=== PATIENT | male | born 1960 | race Caucasian/White ===

== ENCOUNTER → 2018-05-09 | Outpatient (CLI) | payer MEDICARE, MEDICAID | END | disposition home or self-care (01) | LOC: PMGWOUND 10:00 | DX: L81.7 Pigmented purpuric dermatosis (principal); J44.9 Chronic obstructive pulmonary disease, unspecified; E11.9 Type 2 diabetes mellitus without complications; G89.4 Chronic pain syndrome; I11.0 Hypertensive heart disease with heart failure; I50.9 Heart failure, unspecified; M19.90 Unspecified osteoarthritis, unspecified site; E66.9 Obesity, unspecified; G47.30 Sleep apnea, unspecified; E78.00 Pure hypercholesterolemia, unspecified; J45.909 Unspecified asthma, uncomplicated; Z89.612 Acquired absence of left leg above knee; Z68.38 Body mass index [BMI] 38.0-38.9, adult; Z79.4 Long term (current) use of insulin | CPT/HCPCS: 99212 ==

== ENCOUNTER → 2018-10-18 | Day surgery (SDC) | payer MEDICARE, MEDICAID ==
[~2018-10-18] MED LIST: ARIP5TAB13 PO; CETI10TA22 PO; CLON0.5T PO; DICY20TA3 PO; DILT240C2 PO; DULO60CA6 PO; FURO80TA3 PO; GABA800T PO; INSU100I17 SQ; INSU100I27 SQ; IV RINGERS,LACTATED 1000ML 1,000 ML IV SCH; LEVO75TA PO; LIDOCAINE 1% PF 2 ML VIAL. ID PRN; LIDOCAINE 1% PF 2 ML VIAL. ONE; LISI-130 PO; METF10007 PO; METO50TA6 PO; MIDAZOLAM HCL/PF 2 MG/2 ML VIAL. IV PRN; OMEP20TA63 PO; PRAV40TA PO; PROPOFOL 60 ML IV ONE; SERT25TA PO; SPIR25TA PO; TRAZ-85 PO; fentaNYL PF VIAL 100 MCG/2 ML VIAL IV PRN
[2018-10-18 11:30] VITALS: BP 147/72
--- NOTE | 2018-10-18 11:59 | HP ---
ADMIT DATE: 10/18/2018 REASON FOR VISIT: Preoperative clearance for gastric bypass and history of Crohn's. HISTORY OF PRESENT ILLNESS: A 58-year-old male whose past medical history is significant for obesity, peripheral vascular disease, status post amputation as well as insulin, hypothyroidism, diabetes, hyperlipidemia and gastroesophageal reflux disease, is seen for gastric bypass surgery. Preoperatively, upper endoscopy to assess for ulcer or H. pylori is recommended. This will be performed. In addition, he has a remote history of Crohn's disease which has been controlled on intermittent p.r.n. Lomotil and prednisone. No family history of colon cancer is elicited. There is a family history of diabetes and hypertension. PAST MEDICAL HISTORY: Anxiety, arthritis, CHF, Crohn's, depression, diabetes, hyperlipidemia, hypothyroidism and renal disease. ALLERGIES: INCLUDE NSAIDS, SULFA, CYCLOBENZAPRINE, FENTANYL, MORPHINE AND TAMSULOSIN. MEDICATIONS: Include Abilify, Zyrtec, Klonopin, dicyclomine, Cardizem, Cymbalta, Lasix, Neurontin, insulin, lisinopril, metformin, metoprolol, omeprazole, pravastatin, sertraline, spironolactone and trazodone. FAMILY HISTORY: Per records. SOCIAL HISTORY: Per records. REVIEW OF SYSTEMS: Per records. PAST SURGICAL HISTORY: Back surgery, joints replacement and tonsillectomy. PHYSICAL EXAMINATION: GENERAL: Reveals a well-nourished, well-developed male. VITAL SIGNS: Temperature is 97.4, pulse 92 and respirations 20. HEENT EXAMINATION: Reveals normocephalic and atraumatic head. Pupils and extraocular muscles are not tested. Sclerae anicteric. NECK: Supple. LUNGS: Clear. CARDIOVASCULAR EXAMINATION: Reveals an S1, S2, without S3, S4 or appreciable murmur. ABDOMEN: Examination reveals a soft abdomen. Normoactive bowel sounds, without appreciable hepatosplenomegaly. EXTREMITIES: Examination reveals no cyanosis, clubbing or edema. The patient does have amputation on one side. IMPRESSION AND PLAN: 1. Crohn's disease. Surveillance exam is recommended at this time with biopsies. Risks and benefits have been discussed. The patient is willing to proceed. 2. Epigastric pain with dyspepsia and preoperative gastric bypass. Clearance for H. pylori, biopsies will be obtained. MORALES BRAUN MD DR: Pema JOB#: [id number] / [id number]
--- NOTE | 2018-10-21 15:07 | PATHOLOGY ---
[facility] Accession Number: [id number] . 01 Material submitted: . PART A: ANTRUM BIOPSY PART B: RIGHT COLON BIOPSY PART C: TRANSVERSE COLON BIOPSY PART D: LEFT COLON BIOPSY . 01 Clinical history: . GERD, Crohn's, Dysphagia . 02 Diagnosis: A. Stomach, antrum, biopsy: - Mild chronic inflammation, nonspecific. - No evidence of Helicobacter pylori on immunoperoxidase stain. . B, C, D: Colon, right, transverse, and left, biopsies: - Colonic mucosa with no significant histopathologic diagnosis. (SKM:[place]se; 10/21/2018) QMS/10/21/2018 . 02 Electronically signed: . Jac Torres MD, Pathologist NPI- [id number] . 01 Gross description: . A. Received in formalin labeled "Blade Phillips, antrum BX, rule out H. pylori," are 6 segments of rodriguez soft tissue measuring 1.0 x 0.9 x 0.2 cm in aggregate dimensions and ranging from 0.3 to 0.5 cm in maximum dimension. The specimen is submitted entirely in cassette A1. . B. Received in formalin labeled "Blade Phillips, right colon BX," are multiple segments of rodriguez soft tissue measuring 1.6 x 0.5 x 0.1 cm in aggregate dimensions. The specimen is filtered and entirely submitted in cassette B1. . C. Received in formalin labeled "Blade Phillips, transverse colon BX," are multiple segments of rodriguez soft tissue measuring 1.5 x 0.5 x 0.1 cm in aggregate dimensions. The specimen is filtered and entirely submitted in cassette C1. . D. Received in formalin labeled "Blade Phillips, left colon BX," are multiple segments of rodriguez soft tissue measuring 1.7 x 0.5 x 0.1 cm in aggregate dimensions. The specimen is filtered and entirely submitted in cassette D1. (TSD; 10/18/2018) TOB/TOB . 02 Pathologist provided ICD-10: K29.50, K21.9, K50.90, R13.10 . 02 CPT . 769803, 428809, 966951, 249374, [id number] Specimen Comment: A courtesy copy of this report has been sent to Specimen Comment: [phone], , . Specimen Comment: Report sent to Specimen Comment: A duplicate report has been generated due to demographic updates. Performed at: 01 [facility] [address], [place] [id number] MD Everett Sood MD Phone: [phone] Performed at: 02 [facility] [address] [place], [place] [id number] MD Loki Verduzco MD Phone: [phone]
== END | disposition home or self-care (01) ==
LOC: SURG 08:53
PROVIDERS: ATTEND Internal Medicine Gastroenterology
DX: Z09 Encounter for follow-up examination after completed treatment for conditions other than malignant neoplasm (principal); Z87.19 Personal history of other diseases of the digestive system; K64.0 First degree hemorrhoids; K29.50 Unspecified chronic gastritis without bleeding; K50.10 Crohn's disease of large intestine without complications; F41.9 Anxiety disorder, unspecified; F32.9 Major depressive disorder, single episode, unspecified; E11.9 Type 2 diabetes mellitus without complications; E78.5 Hyperlipidemia, unspecified; E03.9 Hypothyroidism, unspecified; K21.9 Gastro-esophageal reflux disease without esophagitis; M19.90 Unspecified osteoarthritis, unspecified site; I11.0 Hypertensive heart disease with heart failure; I50.9 Heart failure, unspecified; E66.9 Obesity, unspecified; Z98.84 Bariatric surgery status; Z83.3 Family history of diabetes mellitus; Z82.49 Family history of ischemic heart disease and other diseases of the circulatory system; Z88.2 Allergy status to sulfonamides; Z88.5 Allergy status to narcotic agent; Z88.6 Allergy status to analgesic agent; Z88.8 Allergy status to other drugs, medicaments and biological substances; Z79.84 Long term (current) use of oral hypoglycemic drugs; Z79.899 Other long term (current) drug therapy; Z98.890 Other specified postprocedural states
CPT/HCPCS: 43239; 45380; 88305; 88342; J2704; 45385

== ENCOUNTER 2020-11-01 08:12 | Outpatient (CLI) | payer MEDICAID, MEDICARE ==
[2020-11-01] VITALS (18 sets, daily range): BP systolic 104–151; BP diastolic 46–73
[~2020-11-01] VITALS: Ht 175.3 cm; Wt 102.1 kg
[~2020-11-01 08:12] MED LIST changes: -CETI10TA22 PO; +CETI10TA74 PO; -IV RINGERS,LACTATED 1000ML 1,000 ML IV SCH; -LEVO75TA PO; +LEVO75TA90 PO; -LIDOCAINE 1% PF 2 ML VIAL. ID PRN; -LIDOCAINE 1% PF 2 ML VIAL. ONE; -MIDAZOLAM HCL/PF 2 MG/2 ML VIAL. IV PRN; -PROPOFOL 60 ML IV ONE; +TRAZ-118 PO; -TRAZ-85 PO; -fentaNYL PF VIAL 100 MCG/2 ML VIAL IV PRN
[2020-11-01] MEDS ORDERED: FLUT9.9S NS (08:48)
[2020-11-01] MEDS ORDERED: NORT25CA PO (08:48)
[2020-11-01] MEDS ORDERED: LOPE1LIQ7 PO (08:48)
[2020-11-01 08:57] LABS: BASO % 1 % (0-3); EOS # 0.2 x10^3/uL (0.0-0.7); EOS % 3 % (0-3); HEMATOCRIT 27.8 % (39.0-53.0); HEMOGLOBIN 9.8 g/dL (13.0-17.5); LYMPH # 1.5 x10^3/uL (1.0-4.8); LYMPH % 21 % (24-48); MEAN CORPUSCULAR HEMOGLOBIN 29 pg (25-35); MEAN CORPUSCULAR HGB CONC 35 g/dL (31-37); MEAN CORPUSCULAR VOLUME 82 fL (79-100); MONO # 0.5 x10^3/uL (0.0-1.1); MONO % 7 % (0-9); NEUT # 4.9 x10^3/uL (1.8-7.7); NEUT % 68 % (31-73); PLATELET COUNT 194 x10^3/uL (140-400); RED BLOOD COUNT 3.38 x10^6/uL (4.30-5.70); RED CELL DISTRIBUTION WIDTH 15.2 % (11.5-14.5); WHITE BLOOD COUNT 7.2 x10^3/uL (4.0-11.0)
[2020-11-01] MEDS ORDERED: LIDOCAINE WITH 8.4% SOD BICARB 3 ML DISP.SYRIN. ONE (08:57)
[2020-11-01 09:05] LABS: CALCIUM 8.4 mg/dL (8.5-10.1); CREATININE 1.9 mg/dL (0.7-1.3); GFR 36.2; POTASSIUM 3.5 mmol/L (3.5-5.1)
[2020-11-01 09:13] LABS: PROTHROMBIN TIME PATIENT 13.3 SEC (11.7-14.0)
[2020-11-01] MEDS ORDERED: fentaNYL PF VIAL 100 MCG/2 ML VIAL ONE (09:31)
[2020-11-01] MEDS ORDERED: FLUMAZENIL 0.5 MG/5 ML VIAL. IV ONE (09:31)
[2020-11-01] MEDS ORDERED: NALOXONE 0.4 MG/ML VIAL. ONE (09:31)
[2020-11-01] MEDS ORDERED: MIDAZOLAM HCL/PF 2 MG/2 ML VIAL. ONE (09:31)
[2020-11-01] MEDS ORDERED: MIDAZOLAM HCL/PF 2 MG/2 ML VIAL. IV ONE (09:45)
[2020-11-01] MEDS ORDERED: fentaNYL PF VIAL 100 MCG/2 ML VIAL IV ONE (09:45)
[2020-11-01] MEDS ORDERED: GELATIN SPONGE SIZE 12-7MM SPONGE. TP ONE (09:45)
[2020-11-01] MEDS ORDERED: GELATIN SPONGE SIZE 12-7MM SPONGE. ONE (09:45)
[2020-11-01] MEDS ORDERED: LIDOCAINE WITH 8.4% SOD BICARB 3 ML DISP.SYRIN. IJ ONE (09:45)
--- NOTE | 2020-11-01 10:02 | PDOC ---
MODERATE SEDATION ASSESSMENT RISKS/ALTERNATIVES Risks/Alternatives Risks and alternatives of this type of sedation and procedure discussed with: RISK/ALTERNATIVES: Patient H & P ON CHART H & P H & P on chart and reviewed for co-morbid conditions and appropriate labs. H&P ON CHART: Yes STATUS PREG STATUS ASSESSED: Yes MEDS/ALLERGIES REVIEWED Meds/Allergies Reviewed Medications and Allergies including time and route of recently administered narcotics and sedatives. MEDS/ALLERGIES REVIEWED: Yes ASA RATING ASA RATING: II AIRWAY ASSESSMENT Airway Assessment Airway patency, oral function limitations, presence of caps, crowns, dentures, partials, and ability to extend neck assessed. AIRWAY ASSESSMENT: Yes MALLAMPATI SCORE MALLAMPATI SCORE: II PRE-SEDATION ASSESSMENT PRE-SEDATION ASSESSMENT: Yes NISHI CASSIDY MD Nov 01, 2020 10:02
--- NOTE | 2020-11-01 10:04 | PDOC ---
Exam Stem Sizer Stem Sizer [place] Track Inspecting Supervisor Track Inspecting Supervisor Moses Pre-Procedure Diagnosis Pre-Procedure Diagnosis Nephrotic Syndrome Post-Procedure Diagnosis Post-Procedure Diagnosis Same Procedure Performed Procedure Performed Left renal biopsy Type of Anesthesia Type of Anesthesia Mod Sed Estimated Blood Loss EBL: 3 Specimens Specimans Renal core biopsy samples Drain/Tubes Drains/Tubes None Condition of Patient Condition of Patient Stable Disposition Disposition Return to [facility] with expected DC today NISHI CASSIDY MD Nov 01, 2020 10:04
[2020-11-01] MEDS ORDERED: VALA10005 PO (10:16)
[2020-11-01] MEDS ORDERED: ERGO500027 PO (10:16)
[2020-11-01] MEDS ORDERED: METH-38 PO (10:16)
[2020-11-01] MEDS ORDERED: LUTE1CAP5 PO (10:16)
[2020-11-01] MEDS ORDERED: BACL10TA PO (10:16)
[2020-11-01] MEDS ORDERED: CLOB15CR27 TP (10:16)
[2020-11-01] MEDS ORDERED: ONDA4TAB7 PO (10:16)
[2020-11-01] MEDS ORDERED: POTA10TA12 PO (10:16)
[2020-11-01] MEDS ORDERED: OXYC1TAB20 PO (10:16)
[2020-11-01] MEDS ORDERED: VITA1TAB3 PO (10:16)
[2020-11-01] MEDS ORDERED: COLE1TAB2 PO (10:16)
[2020-11-01] MEDS ORDERED: PRIM50TA24 PO (10:16)
[2020-11-01] MEDS ORDERED: AMLO-186 PO (10:16)
[2020-11-01] MEDS ORDERED: TERA10CA3 PO (10:16)
[2020-11-01] MEDS ORDERED: MULT1CAP33 PO (10:16)
[2020-11-01] MEDS ORDERED: CRESTOR40 MG PO (10:16)
[2020-11-01] MEDS ORDERED: BREO ELLIPTA 21 EACH IH (10:16)
[2020-11-01] MEDS ORDERED: MECL-75 PO (10:16)
[2020-11-01] MEDS ORDERED: DIPH1TAB PO (10:16)
--- NOTE | 2020-11-01 13:16 | RAD ---
11/01/2020 11:10 AM Procedure: Ultrasound-guided biopsy, left kidney Clinical Indication: NEPHROTIC SYNDROME Discussion: The procedure was explained in its entirety to the patient or the patients designated livestock sales representative by a member of the treatment team, including a discussion of the risks, benefits and commonly accepted alternatives to the procedure, as well as the expected consequences of no therapy whatsoever. Discussion of the risks included, but was not limited to, those that are most frequent and those that are rare but possibly severe or life-threatening, as well as the possibility of unforeseen complications. All elements of maximal sterile barrier technique including the use of a cap, mask, sterile gown, sterile gloves, large sterile sheet, appropriate hand hygiene, and 2% chlorhexidine for cutaneous antisepsis (or acceptable alternative antiseptic per current guidelines) were followed for this procedure. The procedures performed under conscious sedation including continuous cardiopulmonary monitoring via dedicated sedation nurse. [id number] sedation time: 25 minutes The patient was brought to the CT catheter in place in the prone position. A timeout procedure was performed. The left flank was prepped and draped using sterile barrier technique. Ultrasound evaluation demonstrated inadequate visualization of the left kidney. Some renal cortical thinning noted. 1% lidocaine was administered for local anesthesia. Under direct ultrasound guidance a 17-gauge needle was advanced into the posterior inferior left kidney. Core biopsy samples were obtained and divided amongst formalin and Curtis's solution. Gelfoam embolization of the biopsy tract was performed as the guiding needle was removed. Manual pressure was held for several minutes. Repeat ultrasound demonstrates no perinephric hemorrhage or other focal abnormality. Postbiopsy changes noted. Impression: Ultrasound-guided biopsy, left kidney
--- NOTE | 2020-11-01 13:25 | NUR ---
Patient d/c, taken to vehicle via wheelchair. All belongings w/ patient at time of transfer. Patient's son present. All d/c instructions discussed, patient and son verbalized understanding. PIV removed. VS stable. See assessments.
== END 2020-11-01 13:25 | disposition home or self-care (01) ==
LOC: INTRAD 08:12
PROVIDERS: ATTEND Nurse Practitioner Adult Health
DX: N04.9 Nephrotic syndrome with unspecified morphologic changes (principal); I13.0 Hypertensive heart and chronic kidney disease with heart failure and stage 1 through stage 4 chronic kidney disease, or unspecified chronic kidney disease; E11.22 Type 2 diabetes mellitus with diabetic chronic kidney disease; N18.9 Chronic kidney disease, unspecified; I50.9 Heart failure, unspecified; G47.30 Sleep apnea, unspecified; E78.5 Hyperlipidemia, unspecified; F41.9 Anxiety disorder, unspecified; F32.9 Major depressive disorder, single episode, unspecified; J44.9 Chronic obstructive pulmonary disease, unspecified; E03.9 Hypothyroidism, unspecified; E11.42 Type 2 diabetes mellitus with diabetic polyneuropathy; K29.50 Unspecified chronic gastritis without bleeding; M19.90 Unspecified osteoarthritis, unspecified site; G62.9 Polyneuropathy, unspecified; E66.9 Obesity, unspecified; K21.9 Gastro-esophageal reflux disease without esophagitis; Z88.2 Allergy status to sulfonamides; Z88.8 Allergy status to other drugs, medicaments and biological substances; Z88.5 Allergy status to narcotic agent; Z88.6 Allergy status to analgesic agent; Z79.4 Long term (current) use of insulin; Z79.899 Other long term (current) drug therapy; Z83.3 Family history of diabetes mellitus; Z98.84 Bariatric surgery status; Z87.19 Personal history of other diseases of the digestive system; Z68.33 Body mass index [BMI] 33.0-33.9, adult; Z89.612 Acquired absence of left leg above knee; Z82.49 Family history of ischemic heart disease and other diseases of the circulatory system
CPT/HCPCS: 36415; 50200; 76942; 80048; 85025; 85610; 99152; 99153; J2250; J3010; J3490

== ENCOUNTER 2022-03-07 14:44 | Inpatient (IN) | payer MEDICARE ==
[~2022-03-07] VITALS: Ht 175.3 cm; Wt 109.2 kg
[~2022-03-07 14:44] MED LIST changes: +AMLO-186 PO; +BACL10TA PO; +BREO ELLIPTA 21 EACH IH; +CLOB15CR27 TP; +COLE1TAB2 PO; +CRESTOR40 MG PO; +DICY20TA PO; -DICY20TA3 PO; +DIPH1TAB PO; -DULO60CA6 PO; +DULO60CA7 PO; +ERGO500089 PO; +FLUT9.9S NS; +LOPE1LIQ7 PO; +LUTE1CAP5 PO; +MECL-75 PO; +METH-38 PO; +MULT1CAP33 PO; +NORT25CA PO; +ONDA4TAB7 PO; +OXYC1TAB20 PO; +POTA10TA12 PO; +PRIM50TA24 PO; +TERA10CA3 PO; +VALA10005 PO; +VITA1TAB3 PO
--- NOTE | 2022-03-07 15:18 | EKG ---
[facility] [address] [place] [address] Test Date: 2022-03-07 Test Time: 14:55:34 Pat Name: GALILEA CHAU Department: Room: Gender: M Surgical Sales Representative: : 1960 Requested By: GALILEA EASLEY Order Number: [id number] Reading MD: Mario Bernal Measurements Intervals [place] Rate: 72 P: 45 [place]: 172 QRS: 14 QRSD: 82 T: 55 QT: 410 QTc: 451 Interpretive Statements SINUS RHYTHM Electronically Signed On 03-08-2022 17:09:32 CDT by Mario Bernal
--- NOTE | 2022-03-07 15:20 | PHYS DOC ---
Past Medical History Past Medical History: Anemia, Diabetes-Type II, High Cholesterol, Hypertension, Renal Failure Additional Past Medical Histor: CKD,ESRD Past Medical History Limited secondary to altered mental status Past Surgical History: Other Additional Past Surgical Histo: GROSHONG R CHEST,FISTULA L UPPER ARM,L AKA,BILAT SHOULDER Past Surgical History Limited secondary to altered mental status Smoking Status: Never Smoker Alcohol Use: None Drug Use: None Social History Limited secondary to altered mental status General Adult EDM: Chief Complaint: ALTERED MENTAL STATUS HPI: HPI: Patient is a 61-year-old male with CC DM, HTN, hyperlipidemia, ESRD on HD T//Sun presents with CC altered mental status. Patient reports having no memory of receiving dialysis care today. Patient reports achy headache and left lower chest/ upper quadrant abdominal pain. Patient reports headache and abdominal pain began on 03/03/2022 following a fall in his bathroom that resulted in head trauma. Patient reports pain associated with headache and abdominal pain has been constant since the event. Patient reports he has been falling more often in the past year. Patient also reports currently working with neurologist regarding tremors/jerks. Patient denies any fever, nausea, vomiting, dizziness, or hematochezia. Patient reports he make minimal urine. Report history of "chronic UTI" for which patient is on doxycycline. Patient reports he is unable to remember how he got to dialysis center. Reports he is prescribed oxycodone for chronic back pain. Denies taking any extra pain medications. Patient has an extensive past surgical history that includes left leg [id number] amputation, spinal cord cancer resection, epidural hematoma, cervical fusion, and bilateral shoulder repair. History of present illness limited secondary to altered mental status. Review of Systems: Review of Systems: Constitutional: Denies fever Eyes: Denies redness or eye pain HENT: Denies epistaxis Respiratory: Reports cough; denies shortness of breath Cardiovascular: Denies palpitations; reports left lower lateral chest wall pain GI: Denies abdominal pain, nausea, or vomiting. Reports left-sided upper abdominal pain. Integument: Denies laceration Neurologic: Reports headache and altered mental status Review of systems limited secondary to altered mental status. Heart Score: C/O Chest Pain: N/A Allergies: Allergies: Allergies Coded Allergies Type Severity Reaction Last Updated Verified NSAIDS (Non-Steroidal Anti-Inflamma Allergy Intermediate 10/18/18 Yes cyclobenzaprine Allergy Intermediate 10/18/18 Yes fentanyl Allergy Intermediate 10/18/18 Yes morphine Allergy Intermediate headache 10/18/18 Yes tamsulosin Allergy Intermediate 10/18/18 Yes Sulfa (Sulfonamide Antibiotics) Adverse Reaction Intermediate PALIPTATIONS 10/18/18 Yes Physical Exam: PE: Constitutional: Well developed, obese, no acute distress, somnolent HENT: Normocephalic, atraumatic Eyes: PERRL, EOMI, conjunctiva normal, no discharge, no nystagmus noted Neck: Normal range of motion, no midline tenderness, supple Lungs & Thorax: No respiratory distress, equal chest rise and fall, left lateral lower chest wall tenderness on palpation, auscultation diminished at base of left Cardiovascular: Regular rate and rhythm, cap refill less than 2 seconds Abdomen: Soft, mild tenderness deep palpation LUQ. Skin: Warm, dry, no erythema, no rash, no laceration Back: No tenderness, no CVA tenderness Extremities: No tenderness, ROM intact, no edema, 5/5 BUE + RLE strength, +2 capillary refill BUE, negative Gardiner, left lower extremity AKA noted Neurologic: Alert and oriented X 3, normal motor function, normal sensory function, no focal deficits noted. Somnolence but arousable to voice and answering appropriate questions. Reports cannot recall being at dialysis center. Psychologic: Affect normal, judgment abnormal Current Patient Data: Vital Signs: Vital Signs Date Time Temp Pulse Resp B/P (MAP) Pulse Ox O2 Delivery O2 Flow Rate FiO2 03/07/22 14:44 97.7 72 20 136/60 (85) 96 Room Air 97.7 EKG: EKG: @1455 NSR at 72bpm, NO ST elevation, QRS 82ms, QT/QTc 410/451ms Radiology/Procedures: Radiology/Procedures: PROCEDURE: CT HEAD AND CERVICAL SPINE WO EXAM: CT HEAD WITHOUT IV CONTRAST CLINICAL HISTORY: Reason: altered mental status, pain, hx of fall / Spl. Instructions: / History: COMPARISON: 06/02/2018 TECHNIQUE: Routine CT of the head without contrast. Soft tissues and bone windows were reviewed. PQRS compliance statement - One or more of the following individualized dose reduction techniques were utilized for this study: 1. Automated exposure control 2. Adjustment of the mA and/or kV according to patient size 3. Use of iterative reconstruction technique FINDINGS: There is no evidence of hemorrhage, mass or extra-axial fluid collection. Schaeffer-white differentiation is maintained with no evidence of edema. There is no mass effect or shift of the intracranial structures. The ventricles, basilar cisterns and cortical sulci are normal in size and configuration for the patients stated age. The cerebellum and brainstem are unremarkable. Lucent lesion within the right frontal region measures 2.5 cm, grossly stable to 06/02/2018. Calvarium demonstrates no evidence of fracture or other focal lesion. There is normal aeration of the visualized paranasal sinuses and mastoid air cells. The visualized portions of the orbits are normal. Atherosclerotic calcifications of the intracranial internal carotid and vertebral arteries is seen. IMPRESSION: No evidence for acute intracranial process. EXAM: CT CERVICAL SPINE WITHOUT IV CONTRAST CLINICAL HISTORY: Reason: altered mental status, pain, hx of fall / Spl. Instructions: / History: COMPARISON: None available. TECHNIQUE: Helical CT of the cervical spine was performed. Axial, coronal and sagittal reformatted images were also performed. PQRS compliance statement - One or more of the following individualized dose reduction techniques were utilized for this study: 1. Automated exposure control 2. Adjustment of the mA and/or kV according to patient size 3. Use of iterative reconstruction technique FINDINGS: Vertebral body heights are preserved. No acute fracture. Postoperative changes of C4-C6 anterior cervical discectomy and fusion. No spondylolisthesis. Straightening of the normal cervical lordosis. Mild C2-3, C3-4 and C6-7 disc height loss. Moderate C7-T1 disc height loss. Small posterior disc osteophyte complexes C6-7 and C7-T1 resulting in mild to moderate central canal stenosis. There is a background of congenital canal narrowing. IMPRESSION: 1. Postoperative changes of C4-C6 anterior cervical discectomy and fusion without evidence for acute fracture or hardware complication. 2. Multilevel degenerative changes as above. Electronically signed by: Herrera Blandon MD (03/07/2022 4:21 PM) [facility] PROCEDURE: CT CHEST ABDOMEN PELVIS WO ADDENDUM ADDENDUM #1 Addendum: Impression: 8. An indeterminate 1.8 cm right adrenal nodule is seen as described above. This can be correlated with prior imaging if available, otherwise can be further assessed by MRI if clinically indicated. Electronically signed by: Herrera Blandon MD (03/07/2022 4:47 PM) [facility] ORIGINAL REPORT EXAM: CT Chest, Abdomen and Pelvis without IV contrast CLINICAL HISTORY: Reason: left chest/LUQ abdominal pain s/p fall / Spl. Instructions: / History: COMPARISON: None. TECHNIQUE: Helical CT of the chest, abdomen and pelvis was performed without intravenous contrast. Axial, coronal and sagittal reformatted images were [employer]. ---PQRS compliance statement - One or more of the following individualized dose reduction techniques were utilized for this study: 1. Automated exposure control 2. Adjustment of the mA and/or kV according to patient size 3. Use of iterative reconstruction technique--- FINDINGS: Lack of intravenous contrast limits evaluation of solid organs, vasculature, and lymph nodes. Chest: Right IJ catheter tip terminates within the right atrium. Heart is not enlarged. Coronary calcifications. No pericardial effusion. No pleural effusion. No pneumothorax. Bandlike opacities lower lobes predominantly dependently and in the lingula likely scarring/atelectasis. 4 mm right upper lobe lung nodule (image 34). No thoracic lymphadenopathy within the constraints of this noncontrast examination. Abdomen and Pelvis: No focal liver lesion. Liver is enlarged measuring 22.5 cm in length. Spleen is enlarged. Calcified gallstones are seen dependently within the gallbladder. No biliary ductal dilatation. Pancreas and left adrenal glands unremarkable. 1.8 cm right adrenal nodule, indeterminate. Bilateral nonobstructing renal calculi including punctate right interpolar and 1.3 cm left interpolar renal calculi. No hydronephrosis. No hydroureter. Bladder is unremarkable. Appendix is normal. Moderate colonic stool content is seen. No small or large bowel dilatation. No bowel obstruction. Changes of gastric bypass are seen. No abdominal or pelvic ascites. No abdominal or pelvic lymphadenopathy. Bones: Prominent Schmorl's node superior endplate L3. Hip joint degenerative changes bilaterally. Chronic deformity left hip joint, possibly from old fracture. Several acute subacute left lateral and anterolateral rib fractures are seen from the left fifth rib 11th rib. IMPRESSION: 1. Acute and subacute fractures in the anterolateral and lateral left ribs as above. 2. Hepatomegaly. Splenomegaly. 3. Cholelithiasis without CT evidence for fecal cystitis. 4. Lower lobe and lingular wedge-shaped opacities likely scarring/atelectasis. 5. Nonobstructing calculi bilaterally. 6. 4 mm right upper lobe lung nodule. Per Fleischner Society guidelines for incidentally found solid nodules measuring less than 6 mm, no follow-up is necessary if patient is considered at low risk for lung cancer. If patient is considered to be at high risk, such as with history of smoking, then CT follow- up in about 12 months can be considered. 7. Deformity left hip/femoral neck, likely chronic, possibly from old fracture. Electronically signed by: Herrera Blandon MD (03/07/2022 4:40 PM) [facility] DICTATED AND SIGNED BY: HERRERA BLANDON MD DATE: 03/07/221646 CC: GALILEA EASLEY DO; LUNA BOSTON MD ~ EXAM: CT Chest, Abdomen and Pelvis without IV contrast CLINICAL HISTORY: Reason: left chest/LUQ abdominal pain s/p fall / Spl. Instructions: / History: COMPARISON: None. TECHNIQUE: Helical CT of the chest, abdomen and pelvis was performed without intravenous contrast. Axial, coronal and sagittal reformatted images were generated. ---PQRS compliance statement - One or more of the following individualized dose reduction techniques were utilized for this study: 1. Automated exposure control 2. Adjustment of the mA and/or kV according to patient size 3. Use of iterative reconstruction technique--- FINDINGS: Lack of intravenous contrast limits evaluation of solid organs, vasculature, and lymph nodes. Chest: Right IJ catheter tip terminates within the right atrium. Heart is not enlarged. Coronary calcifications. No pericardial effusion. No pleural effusion. No pneumothorax. Bandlike opacities lower lobes predominantly dependently and in the lingula likely scarring/atelectasis. 4 mm right upper lobe lung nodule (image 34). No thoracic lymphadenopathy within the constraints of this noncontrast examination. Abdomen and Pelvis: No focal liver lesion. Liver is enlarged measuring 22.5 cm in length. Spleen is enlarged. Calcified gallstones are seen dependently within the gallbladder. No biliary ductal dilatation. Pancreas and left adrenal glands unremarkable. 1.8 cm right adrenal nodule, indeterminate. Bilateral nonobstructing renal calculi including punctate right interpolar and 1.3 cm left interpolar renal calculi. No hydronephrosis. No hydroureter. Bladder is unremarkable. Appendix is normal. Moderate colonic stool content is seen. No small or large bowel dilatation. No bowel obstruction. Changes of gastric bypass are seen. No abdominal or pelvic ascites. No abdominal or pelvic lymphadenopathy. Bones: Prominent Schmorl's node superior endplate L3. Hip joint degenerative changes bilaterally. Chronic deformity left hip joint, possibly from old fracture. Several acute subacute left lateral and anterolateral rib fractures are seen from the left fifth rib 11th rib. IMPRESSION: 1. Acute and subacute fractures in the anterolateral and lateral left ribs as above. 2. Hepatomegaly. Splenomegaly. 3. Cholelithiasis without CT evidence for fecal cystitis. 4. Lower lobe and lingular wedge-shaped opacities likely scarring/atelectasis. 5. Nonobstructing calculi bilaterally. 6. 4 mm right upper lobe lung nodule. Per Fleischner Society guidelines for incidentally found solid nodules measuring less than 6 mm, no follow-up is necessary if patient is considered at low risk for lung cancer. If patient is considered to be at high risk, such as with history of smoking, then CT follow- up in about 12 months can be considered. 7. Deformity left hip/femoral neck, likely chronic, possibly from old fracture. Electronically signed by: Herrera Blandon MD (03/07/2022 4:40 PM) [facility] Course & Med Decision Making: Course & Med Decision Making Pertinent Labs and Imaging studies reviewed. (See chart for details) Patient is a 61-year-old male with CC DM, HTN, hyperlipidemia, ESRD on HD T//Sun presents with CC altered mental status. Patient reports having no memory of receiving dialysis care today. Patient reports achy headache and left lateral lower chest wall pain and left upper quadrant abdominal pain. Patient reports headache and abdominal pain began on 03/03/2022 following a fall in his bathroom that resulted in head trauma and left chest/LUQ pain. Patient somnolent but arousable to voice. Denies taking any pain medication prior to arrival. Patient is prescribed Percocet for chronic pain. Patient also with history of "chronic UTI "for which he takes doxycycline. Patient reports she does not normally make much urine. CT head/cervical spine without acute finding. CT chest/abdomen/pelvis with f indings of left-sided acute/subacute rib fractures. No pneumothorax noted. No signs of pneumonia. Incidental pulmonary nodule and adrenal nodule noted. A copy of CT report provided to patient to give to his PCP upon discharge for future reevaluation. Incentive spirometer provided. EKG stable. Labs obtained and posted to chart. Patient continued to be slightly altered and somnolent during ED stay. Patient requiring admission for further evaluation and treatment. Discussed with Dr. Ash (hospitalist) who is in agreement with admission. Discussed findings and plan with patient and patient's son, who acknowledge understanding and agreement. Dragon Disclaimer: Dragon Disclaimer: This electronic medical record was generated, in whole or in part, using a voice recognition dictation system. Departure Departure Impression: Primary Impression: Altered mental status Qualified Codes: R41.82 - Altered mental status, unspecified Additional Impression: ESRD (end stage renal disease) on dialysis Disposition: ADMITTED INPATIENT Admitting Physician: JESSE Neal) Condition: STABLE Referrals: LUNA BOSTON MD (PCP) GALILEA EASLEY DO March 07, 2022 15:20
[2022-03-07 15:27] LABS: BASO % 0 % (0-3); EOS # 0.1 x10^3/uL (0.0-0.7); EOS % 2 % (0-3); HEMOGLOBIN 9.3 g/dL (13.0-17.5); LYMPH # 0.5 x10^3/uL (1.0-4.8); LYMPH % 6 % (24-48); MEAN CORPUSCULAR HEMOGLOBIN 30 pg (25-35); MEAN CORPUSCULAR HGB CONC 33 g/dL (31-37); MEAN CORPUSCULAR VOLUME 90 fL (79-100); MONO # 0.5 x10^3/uL (0.0-1.1); MONO % 5 % (0-9); NEUT % 87 % (31-73); PLATELET COUNT 201 x10^3/uL (140-400); RED BLOOD COUNT 3.12 x10^6/uL (4.30-5.70); RED CELL DISTRIBUTION WIDTH 15.8 % (11.5-14.5); WHITE BLOOD COUNT 9.2 x10^3/uL (4.0-11.0)
[2022-03-07 15:37] LABS: PROTHROMBIN TIME PATIENT 13.4 SEC (11.7-14.0)
[2022-03-07 15:41] LABS: CALCIUM 8.8 mg/dL (8.5-10.1); CREATININE 0.8 mg/dL (0.7-1.3); POTASSIUM 3.3 mmol/L (3.5-5.1)
[2022-03-07 15:47] LABS: ALBUMIN 3.5 g/dL (3.4-5.0); MAGNESIUM 1.7 mg/dL (1.8-2.4); TOTAL BILIRUBIN 0.3 mg/dL (0.2-1.0)
--- NOTE | 2022-03-07 16:24 | RAD ---
EXAM: CT HEAD WITHOUT IV CONTRAST CLINICAL HISTORY: Reason: altered mental status, pain, hx of fall / Spl. Instructions: / History: COMPARISON: 06/02/2018 TECHNIQUE: Routine CT of the head without contrast. Soft tissues and bone windows were reviewed. PQRS compliance statement - One or more of the following individualized dose reduction techniques wer e utilized for this study: 1. Automated exposure control 2. Adjustment of the mA and/or kV according to patient size 3. Use of iterative reconstruction technique FINDINGS: There is no evidence of hemorrhage, mass or extra-axial fluid collection. Schaeffer-white differentiation is maintained with no evidence of edema. There is no mass effect or shift of the intracranial structures. The ventricles, basilar cisterns and cortical sulci are normal in size and configuration for the john ents stated age. The cerebellum and brainstem are unremarkable. Lucent lesion within the right frontal region measures 2.5 cm, grossly stable to 06/02/2018. Calvarium demonstrates no evidence of fracture or other focal lesion. There is normal aeration of the visualized paranasal sinuses and mastoid air cells. The visualized portions of the orbits are normal. Atherosclerotic calcifications of the intracranial internal carotid and vertebral arteries is seen. IMPRESSION: No evidence for acute intracranial process. EXAM: CT CERVICAL SPINE WITHOUT IV CONTRAST CLINICAL HISTORY: Reason: altered mental status, pain, hx of fall / Spl. Instructions: / History: COMPARISON: None available. TECHNIQUE: Helical CT of the cervical spine was performed. Axial, coronal and sagittal reformatted im ages were also performed. PQRS compliance statement - One or more of the following individualized dose reduction techniques wer e utilized for this study: 1. Automated exposure control 2. Adjustment of the mA and/or kV according to patient size 3. Use of iterative reconstruction technique FINDINGS: Vertebral body heights are preserved. No acute fracture. Postoperative changes of C4-C6 anterior cerv ical discectomy and fusion. No spondylolisthesis. Straightening of the normal cervical lordosis. Mild C2-3, C3-4 and C6-7 disc height loss. Moderate C7-T1 disc height loss. Small posterior disc oste ophyte complexes C6-7 and C7-T1 resulting in mild to moderate central canal stenosis. There is a back ground of congenital canal narrowing. IMPRESSION: 1. Postoperative changes of C4-C6 anterior cervical discectomy and fusion without evidence for acute fracture or hardware complication. 2. Multilevel degenerative changes as above. Electronically signed by: Herrera Wagner MD (03/07/2022 4:21 PM) [facility]
--- NOTE | 2022-03-07 16:42 | RAD ---
EXAM: CT Chest, Abdomen and Pelvis without IV contrast CLINICAL HISTORY: Reason: left chest/LUQ abdominal pain s/p fall / Spl. Instructions: / History: COMPARISON: None. TECHNIQUE: Helical CT of the chest, abdomen and pelvis was performed without intravenous contrast. Ax ial, coronal and sagittal reformatted images were generated. ---PQRS compliance statement - One or more of the following individualized dose reduction techniques were utilized for this study: 1. Automated exposure control 2. Adjustment of the mA and/or kV according to patient size 3. Use of iterative reconstruction technique--- FINDINGS: Lack of intravenous contrast limits evaluation of solid organs, vasculature, and lymph nodes. Chest: Right IJ catheter tip terminates within the right atrium. Heart is not enlarged. Coronary calcificati ons. No pericardial effusion. No pleural effusion. No pneumothorax. Bandlike opacities lower lobes predominantly dependently and in the lingula likely scarring/atelectas is. 4 mm right upper lobe lung nodule (image 34). No thoracic lymphadenopathy within the constraints of this noncontrast examination. Abdomen and Pelvis: No focal liver lesion. Liver is enlarged measuring 22.5 cm in length. Spleen is enlarged. Calcified g allstones are seen dependently within the gallbladder. No biliary ductal dilatation. Pancreas and lef t adrenal glands unremarkable. 1.8 cm right adrenal nodule, indeterminate. Bilateral nonobstructing renal calculi including punctate right interpolar and 1.3 cm left interpolar renal calculi. No hydronephrosis. No hydroureter. Bladder is unremarkable. Appendix is normal. Moderate colonic stool content is seen. No small or large bowel dilatation. No dorota wel obstruction. Changes of gastric bypass are seen. No abdominal or pelvic ascites. No abdominal or pelvic lymphadenopathy. Bones: Prominent Schmorl's node superior endplate L3. Hip joint degenerative changes bilaterally. Chronic de formity left hip joint, possibly from old fracture. Several acute subacute left lateral and anterolat eral rib fractures are seen from the left fifth rib 11th rib. IMPRESSION: 1. Acute and subacute fractures in the anterolateral and lateral left ribs as above. 2. Hepatomegaly. Splenomegaly. 3. Cholelithiasis without CT evidence for fecal cystitis. 4. Lower lobe and lingular wedge-shaped opacities likely scarring/atelectasis. 5. Nonobstructing calculi bilaterally. 6. 4 mm right upper lobe lung nodule. Per Fleischner Society guidelines for incidentally found solid nodules measuring less than 6 mm, no follow-up is necessary if patient is considered at low risk for lung cancer. If patient is considered to be at high risk, such as with history of smoking, then CT f ollow-up in about 12 months can be considered. 7. Deformity left hip/femoral neck, likely chronic, possibly from old fracture. Electronically signed by: Herrera Wagner MD (03/07/2022 4:40 PM) [facility]
[2022-03-07] MEDS ORDERED: DEXTROSE 50% 25 GM / 50ML DISP.SYRIN. IV PRN (17:30)
[2022-03-07] MEDS ORDERED: ONDANSETRON PF 4 MG/2 ML VIAL. IVP PRN (17:30)
[2022-03-07 17:46] LABS: INFLUENZA A PATIENT NEGATIVE (NEGATIVE); INFLUENZA B PATIENT NEGATIVE (NEGATIVE)
[2022-03-07] MEDS ORDERED: THIAMINE IM 200 MG/2 ML VIAL. IM ONE (20:30)
--- NOTE | 2022-03-07 20:40 | HP ---
DATE OF SERVICE: 03/07/2022 ADMIT DATE: 03/07/2022 CHIEF COMPLAINT: Mental status change. HISTORY OF PRESENT ILLNESS: The patient is a pleasant 61-year-old male who has been on dialysis since December of this year. He has multiple comorbidities. Basically today while he is on dialysis, he developed mental status change. He was brought to the ER for evaluation. He is here in the ER room 4 where his daughter, Rere, is here and she is very supportive. She actually is an RN. 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 Chronic UTI and he has been on doxycycline for that for a while. Essential tremor. ALLERGIES TO MEDICATIONS: SULFA. FAMILY HISTORY: Noncontributory. SOCIAL HISTORY: He is retired. 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 He does not drink, smoke or take drugs. MEDICATIONS: Reviewed. Please refer to the [facility]. REVIEW OF SYSTEMS: Unable to obtain. He is too confused. PHYSICAL EXAMINATION: VITALS: Within normal limits and are stable. GENERAL: He is very weak, obtunded. HEENT: Normal cephalic atraumatic, external auditory canals are patent EYES: Extraocular muscles are intact, pupils are equally round and reactive to light and accommodation MUSCULOSKELETAL: Well developed, well nourished, good range of motion ENDOCRINE: No thyromegaly was palpated LYMPHATICS: No cervical chain or axillary nodes were noted HEMATOPOIETIC: No bruising NECK: Supple, no JVD, no thyromegaly was noted. LUNGS: Distant breath sounds. CARDIAC: He has a distant S1, S2. ABDOMEN: Soft, nontender. Positive bowel sounds no organomegaly, normal bowel sounds. EXTREMITIES: He has a left AKA. NEUROLOGIC: He is very weak, obtunded. He is starting to wake up and nodding appropriately. PSYCHIATRIC: He is very weak, obtunded. SKIN: No ulcerations or rashes, good skin turgor, no jaundice. VASCULAR: Good capillary refill, neurovascular bundle appears to be intact. ASSESSMENT AND PLAN: Metabolic encephalopathy in a middle-aged male who has end-stage renal disease, on dialysis with multiple comorbidities. The patient has been admitted to the monitored floor. We would like to give him gentle IV hydration, but we will await Nephrology input. Consult Nephrology for dialysis management. Home meds. Deep venous thrombosis prophylaxis. Full code. Trend labs. P.r.n. Zofran. We will reevaluate later and make further diagnostic and therapeutic recommendations. RENZO/MARLI DR: Aron TID: [id number]
[2022-03-07 20:45] VITALS: BP 163/77
[2022-03-07] MEDS ORDERED: OMEP-203 PO (21:54)
[2022-03-07] MEDS ORDERED: TEST200V3 IM (21:54)
[2022-03-07] MEDS ORDERED: SILD25TA PO (21:54)
[2022-03-07] MEDS ORDERED: DULO30CA44 PO (21:54)
[2022-03-07] MEDS ORDERED: ROSU20TA28 PO (21:54)
[2022-03-07] MEDS ORDERED: TIZA-75 PO (21:54)
[2022-03-07] MEDS ORDERED: SERT-268 PO (21:54)
[2022-03-07] MEDS ORDERED: DOXY100C3 PO (21:54)
[2022-03-07] MEDS ORDERED: INSU100I17 SQ (21:54)
[2022-03-07] MEDS ORDERED: CALC667T4 PO (21:54)
[2022-03-07] MEDS ORDERED: PREG50CA58 PO (21:54)
[2022-03-07] MEDS ORDERED: GABA-689 PO (21:54)
[2022-03-07] MEDS ORDERED: LISI20TA18 PO (21:54)
[2022-03-07] MEDS ORDERED: FOLI0.8T3 PO (21:54)
[2022-03-07] MEDS ORDERED: HYDR25TA PO (22:00)
[2022-03-07] MEDS ORDERED: CALC500T31 PO ×2 (22:00)
[2022-03-07] MEDS ORDERED: FINA5TAB4 PO (22:00)
--- NOTE | 2022-03-07 23:00 | NUR ---
The patient, GALILEA CHAU, 61 y/o, M admitted by YOVANA DAS III, DO, was given written information regarding hospital policies, unit procedures and contact persons. Valuables were checked and documented. pt alert an oriented x3 pt able to answer questions appropriately. pt noted to have upper extremity tremors intermittently. pt belongings documented. pt had $ 328.00 dollars in bag, securtiy here to lock money up until discharge. call light in reach will cont to monitor pt status and safety. pmrn .
[2022-03-07 23:02] VITALS: BP 139/60
[2022-03-08 04:31] VITALS: BP 133/68
[2022-03-08] MEDS ORDERED: THIAMINE IM 200 MG/2 ML VIAL. IM ONE (05:00)
[2022-03-08] MEDS: LEVOTHYROXINE 75 MCG TABLET PO SCH (05:05)
[2022-03-08] MEDS ORDERED: INSU100V13 SQ (06:37)
[2022-03-08 07:00] VITALS: BP 154/72
[2022-03-08] MEDS ORDERED: INSU100C4 SQ (07:13)
[2022-03-08] MEDS ORDERED: BREO ELLIPTA 21 EACH IH (07:20)
[2022-03-08] MEDS ORDERED: CLON0.5T PO (07:30)
[2022-03-08] MEDS ORDERED: LUTE20CA4 PO (07:38)
--- NOTE | 2022-03-08 08:54 | PDOC ---
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 We will have pulmonology to see FEN - Renal dialysis PPX - heparin FULL CODE Dispo - inpatient History of Present Illness History of Present Illness Mr Phillips is a 61-year-old male w/ PMHx DM, HTN, hyperlipidemia, ESRD on HD, chronic neck and back pain, s/p L AKA presented to ED from dialysis center due to altered mental status. He did not recall being his dialysis center. Patient reports achy headache and left lower chest/ upper quadrant abdominal pain. Patient reports headache and abdominal pain began on 03/03/2022 following a fall in his bathroom that resulted in head trauma. Patient reports he has been falling more often in the past year. Patient also reports currently working with neurologist regarding tremors/jerks. He also notes he had been taking gabapentin and Lyrica also pain medications and is worried about his spinal stimulator battery that diet has not been replaced. CT chest abdomen pelvis revealed left-sided rib fractures. 03/08: Found with left-sided rib fractures. A little more alert. Having significant left-sided pain at his site of rib fractures requiring IV pain medication and application of Lidoderm patch. May have some pulmonary contusion Vitals/I&O Vitals/I&O: Vital Signs Date Time Temp Pulse Resp B/P (MAP) Pulse Ox O2 Delivery O2 Flow Rate FiO2 03/08/22 07:00 97.8 61 20 154/72 (99) 97 BiPAP/CPAP 97.8 03/08/22 04:31 2.0 I & O 03/07/22 03/07/22 03/08/22 15:00 23:00 07:00 Intake Total 0 ml 420 ml Balance 0 ml 420 ml Physical Exam General: Alert, Cooperative Heart: Regular rate, Normal S1, Normal S2 Lungs: Clear Abdomen: Normal bowel sounds, Soft Extremities: No clubbing, No cyanosis Skin: No rashes, No breakdown Labs Labs: Laboratory Tests Test 03/07/22 15:16 03/07/22 17:23 03/07/22 20:50 03/08/22 07:31 White Blood Count 9.2 x10^3/uL (4.0-11.0) Red Blood Count 3.12 x10^6/uL (4.30-5.70) Hemoglobin 9.3 g/dL (13.0-17.5) Hematocrit 28.0 % (39.0-53.0) Mean Corpuscular Volume 90 fL (79-100) Mean Corpuscular Hemoglobin 30 pg (25-35) Mean Corpuscular Hemoglobin Concent 33 g/dL (31-37) Red Cell Distribution Width 15.8 % (11.5-14.5) Platelet Count 201 x10^3/uL (140-400) Neutrophils (%) (Auto) 87 % (31-73) Lymphocytes (%) (Auto) 6 % (24-48) Monocytes (%) (Auto) 5 % (0-9) Eosinophils (%) (Auto) 2 % (0-3) Basophils (%) (Auto) 0 % (0-3) Neutrophils # (Auto) 8.0 x10^3/uL (1.8-7.7) Lymphocytes # (Auto) 0.5 x10^3/uL (1.0-4.8) Monocytes # (Auto) 0.5 x10^3/uL (0.0-1.1) Eosinophils # (Auto) 0.1 x10^3/uL (0.0-0.7) Basophils # (Auto) 0.0 x10^3/uL (0.0-0.2) Prothrombin Time 13.4 SEC (11.7-14.0) Prothromb Time International Ratio 1.1 (0.8-1.1) Activated Partial Thromboplast Time 28 SEC (24-38) Sodium Level 143 mmol/L (136-145) Potassium Level 3.3 mmol/L (3.5-5.1) Chloride Level 103 mmol/L (98-107) Carbon Dioxide Level 26 mmol/L (21-32) Anion Gap 14 (6-14) Blood Urea Nitrogen 25 mg/dL (8-26) Creatinine 0.8 mg/dL (0.7-1.3) Estimated GFR (Cockcroft-Gault) 98.0 BUN/Creatinine Ratio 31 (6-20) Glucose Level 80 mg/dL (70-99) Lactic Acid Level 1.0 mmol/L (0.4-2.0) Calcium Level 8.8 mg/dL (8.5-10.1) Magnesium Level 1.7 mg/dL (1.8-2.4) Total Bilirubin 0.3 mg/dL (0.2-1.0) Aspartate Amino Transf (AST/SGOT) 18 U/L (15-37) Alanine Aminotransferase (ALT/SGPT) 27 U/L (16-63) Alkaline Phosphatase 55 U/L (46-116) Ammonia < 10 mcmol/L (11-34) Creatine Kinase 171 U/L (39-308) Creatine Kinase MB (Mass) 6.1 ng/mL (0.0-3.6) Creatine Kinase MB Relative Index 3.6 % (0-4) Troponin I High Sensitivity 9 ng/L (4-75) Total Protein 7.0 g/dL (6.4-8.2) Albumin 3.5 g/dL (3.4-5.0) Albumin/Globulin Ratio 1.0 (1.0-1.7) Influenza Type A Antigen Negative (NEGATIVE) Influenza Type B Antigen Negative (NEGATIVE) SARS-CoV-2 Antigen (Rapid) Negative (NEGATIVE) Glucose (Fingerstick) 166 mg/dL (70-99) 156 mg/dL (70-99) Assessment and Plan Assessmemt and Plan Problems Medical Problems: (1) Altered mental status Status: Acute (2) ESRD (end stage renal disease) on dialysis Status: Acute Comment Review of Relevant I have reviewed the following items issa (where applicable) has been applied. Medications: Current Medications Medications (Trade) Dose Ordered Sig/Louisa Route PRN Reason Start Time Stop Time Status Last Admin Dose Admin Ondansetron HCl (Zofran) 4 mg PRN Q8HRS PRN IVP NAUSEA/VOMITING 03/07/22 17:30 03/08/22 17:29 03/07/22 19:59 Thiamine HCl (Thiamine Im) 100 mg 1X ONCE IM 03/08/22 05:00 03/08/22 05:02 DC 03/08/22 05:05 Levothyroxine Sodium (Synthroid) 75 mcg DAILY06 PO 03/08/22 06:00 5/11/22 05:05 Images: PAST MEDICAL HISTORY: His past medical history is significant for type 2 diabetes mellitus, steroids-induced, and irritable bowel syndrome, diastolic heart failure, has a history of mononucleosis proteinuria, and chronic kidney disease, carpal tunnel syndrome, anxiety disorder, hypothyroidism, hypogonadism. He is also known to have an enlarged prostate and hepatomegaly, splenomegaly, meralgia paresthetica, sciatica. He has had kidney stones in 1984. He has osteoarthritis affecting his knee, and back, hands and neck, has spondylolisthesis, Crohn's disease diagnosed in 1985. He has also obstructive sleep apnea for which he is on CPAP, peptic ulcer disease, chemically-induced esophagitis, gastroesophageal reflux disease, gastritis, pharyngitis, chemically-induced bronchitis, bronchial asthma and chronic obstructive pulmonary disease as well as depression. PAST SURGICAL HISTORY: Past surgical history is significant for tumor removal from his left breast for gynecomastia in 1965 and had tonsillectomy in 1963, left knee arthroscopic surgery in 1972, left knee patellar tendon reconstruction and 5 arthroscopic surgeries in 1985 and 1992, had an umbilical hernia repair and laminectomy, cardiac catheterization in 1997. He has also gynecomastia removed from his right breast in 1998, he had growth removed from the right big toe with skin grafting in 1999. He underwent cardiac catheterization in 2000. HE has left total knee arthroplasty in 2002, neck fusions in 2002 and fusion of C4-C6, kidney stone removed from the left side in 02/2003, he had second total knee replacement in 05/2004, and a tumor removed from his right breast in 07/2004, carpal tunnel release right hand in 01/2005, heart catheterization showing left ventricular hypertrophy and global ejection fraction of 65% in 06/2009, right rotator cuff tear surgery in 2010, spinal stimulator placement in 2013, carpal tunnel left hand in 2014, right ring finger release scar tissue in 2015, incision and drainage and scar tissue removal from left knee hardware and the left above-knee amputation. ALLERGIES: HE IS ALLERGIC TO SULFA, SULFA DRUGS, FLEXERIL, MORPHINE, NONSTEROIDAL ANTI-INFLAMMATORY MEDICATION, FENTANYL PATCHES, AND TAMSULOSIN. FAMILY HISTORY: The patient has one brother who is younger and has also problems with diabetes and heart failure. His father at the age of 68 because of complication of coronary artery disease, mother at the age of 71 because of severe COPD. SOCIAL HISTORY: He has one son and two daughters. He never smoked, does not drink alcohol, or use recreational drugs. He is on disability since 1999. He was counseled about transportation. REVIEW OF SYSTEMS: As per history of present illness. PHYSICAL EXAMINATION: GENERAL: On examining him, he looked well and was clearly in no apparent respiratory distress. No pallor, jaundice, cyanosis, or thyromegaly. No jugular venous distension. No lower limb edema. VITAL SIGNS: His heart rate was 57, blood pressure was 131/83, temperature was 97.6, respiratory rate was 16, and oxygen saturation was 98% on room air. HEENT: Examination of the head, eyes, ears, nose and throat showed normocephalic, atraumatic. NECK: Supple. HEART: Showed normal first and second heart sounds with no gallop, rub or murmur. CHEST: Clear to auscultation. No crepitation or rhonchi. ABDOMEN: Distended, soft, nontender. No guarding or rigidity. No organomegaly. Hernial orifices are intact and bowel sounds normal. NEUROLOGIC: He was awake, alert, responding appropriately. All his Cranial nerves are intact. He moves his upper extremities without difficulty. He is mostly bedbound, chair bound. LABORATORY DATA: His lab work this morning showed the white cell count 6400, hemoglobin 11, hematocrit 33, MCV 81, and platelet count of 214,000. His chemistry showed a serum sodium 139, potassium 4.4, chloride 104, bicarbonate 27, anion gap of 8, BUN 27, creatinine 1.4, estimated GFR was 52 mL per minute. Her glucose was 143 and calcium 9. ASSESSMENT AND PLAN: 1. Altered mental status, resolved. 2. Acute kidney injury. Creatinine has improved from 1.6-1.4. 3. Type 2 diabetes with multiple complications, peripheral vascular disease, hypertension, hyperlipidemia, morbid obesity, obstructive sleep apnea, hypothyroidism. Justifications for Admission Other Justification MCKAYLA LI MD March 08, 2022 08:54
[2022-03-08] MEDS ORDERED: ERGOCALCIFEROL (VITAMIN D2) 50,000 UNIT CAPSULE. PO SCH (09:00)
[2022-03-08] MEDS ORDERED: hydrALAZINE 20 MG/ML VIAL. IVP PRN (09:00)
[2022-03-08] MEDS ORDERED: traMADol 50 MG TABLET PO PRN (09:00)
[2022-03-08] MEDS ORDERED: ACETAMINOPHEN 325 MG TABLET. PO PRN (09:00)
[2022-03-08] MEDS ORDERED: hydrOXYzine 25 MG TABLET PO PRN (09:00)
[2022-03-08] MEDS ORDERED: NON FORMULARY ITEM (Fluticasone/Vilanterol (Breo Ellipta 200-25 Mcg INH) 1 PUFF) IH SCH (09:00)
[2022-03-08] MEDS ORDERED: guaiFENesin DM 200MG/20MG 10 ML SYRUP PO PRN (09:00)
[2022-03-08] MEDS ORDERED: BACLOFEN 10 MG TABLET. PO PRN (09:00)
[2022-03-08] MEDS: FLUTICASONE 50MCG/NASAL SPRAY 16GM BOTTLE. NS SCH (09:00)
[2022-03-08] MEDS ORDERED: VITAMIN B COMPLEX TABLET. PO SCH (09:00)
[2022-03-08] MEDS: CALCIUM CARBONATE 500 MG TABLET PO SCH ×3 (09:00→21:38)
[2022-03-08] MEDS: CETIRIZINE HCL 10 MG TABLET. PO SCH (09:23)
[2022-03-08] MEDS: FINASTERIDE 5 MG TABLET. PO SCH (09:23)
[2022-03-08] MEDS: DULoxetine HCL 30 MG CAPSULE.DR PO SCH (09:23)
[2022-03-08] MEDS: FOLIC/VIT B COMP W-C (RENAL) TABLET. PO SCH (09:23)
[2022-03-08] MEDS: COLESTIPOL HCL 1 GM TABLET PO SCH ×5 (09:23→21:39)
[2022-03-08] MEDS: GABAPENTIN 100 MG CAPSULE. PO SCH ×3 (09:24→21:39)
[2022-03-08] MEDS: ARIPiprazole 5 MG TABLET PO SCH (09:24)
[2022-03-08] MEDS: SERTRALINE 50 MG TABLET. PO SCH ×2 (09:25→21:38)
[2022-03-08] MEDS: ALBUTEROL SULFATE 2.5 MG/3 ML NEBU. NEB SCH ×4 (09:30→20:38)
[2022-03-08] MEDS ORDERED: OXYC1TAB20 PO (09:30)
[2022-03-08] MEDS: INSULIN LISPRO 300 UNITS/3 ML VIAL. SQ SCH ×4 (09:43→22:21)
[2022-03-08] MEDS: oxyCODONE IR 5 MG TABLET PO PRN ×2 (09:46→18:25)
[2022-03-08 10:10] LABS: ALBUMIN 2.8 g/dL (3.4-5.0); CREATININE 6.6 mg/dL (0.7-1.3); GFR 8.6; PHOSPHORUS 6.8 mg/dL (2.6-4.7)
[2022-03-08 10:18] LABS: POTASSIUM 5.2 mmol/L (3.5-5.1)
[2022-03-08] MEDS: LIDOCAINE (700MG/PATCH) PATCH. TD SCH (10:26)
--- NOTE | 2022-03-08 10:29 | PDOC2 ---
CONSULT Date of Consult Date of Consult DATE: 03/08/22 TIME: 10:23 Reason for Consult Reason for Consult: ESRD Source Source: Chart review, Patient History of Present Illness Reason for Visit: Patient is a 61-year-old male with CC DM, HTN, hyperlipidemia, ESRD on HD T//Sun presents with CC altered mental status. Patient reports having no memory of receiving dialysis care today. Patient reports achy headache and left lower chest/ upper quadrant abdominal pain. Patient reports headache and abdominal pain began on 03/03/2022 following a fall in his bathroom that resulted in head trauma. Patient reports pain associated with headache and abdominal pain has been constant since the event. Patient reports he has been falling more often in the past year. Patient also reports currently working with neurologist regarding tremors/jerks. Patient denies any fever, nausea, vomiting, dizziness, or hematochezia. Patient reports he make minimal urine. Report history of "chronic UTI" for which patient is on doxycycline. Patient reports he is unable to remember how he got to dialysis center. Reports he is prescribed oxycodone for chronic back pain. Denies taking any extra pain medications. States he feels better now but still brain feels foggy. Had HD for 3 hrs yesterday instead of his normal 4 Hrs. Denies any SOB and uses BiPAP at home No N/V/D. No abdominal pain. No CP He has Chronic Low Calcium Patient has an extensive past surgical history that includes left leg [id number] amputation, spinal cord cancer resection, epidural hematoma, cervical fusion, and bilateral shoulder repair. Current Problem List Problem List Problems Medical Problems: (1) Altered mental status Status: Acute (2) ESRD (end stage renal disease) on dialysis Status: Acute Current Medications Current Medications Current Medications Ondansetron HCl (Zofran) 4 mg PRN Q8HRS PRN IVP NAUSEA/VOMITING Last administered on 03/07/22at 19:59; Start 03/07/22 at 17:30; Stop 03/08/22 at 17:29 Insulin Human Lispro (HumaLOG) 0-5 UNITS TIDWMEALS SQ Last administered on 03/08/22at 09:43; Start 03/08/22 at 08:00 Dextrose (Dextrose 50%-Water Syringe) 12.5 gm PRN Q15MIN PRN IV SEE COMMENTS; Start 03/07/22 at 17:30 Thiamine HCl (Thiamine Im) 100 mg 1X ONCE IM ; Start 03/07/22 at 20:30; Stop 03/07/22 at 20:31; Status Cancel Thiamine HCl (Thiamine Im) 100 mg 1X ONCE IM Last administered on 03/08/22at 05:05; Start 03/08/22 at 05:00; Stop 03/08/22 at 05:02; Status DC Levothyroxine Sodium (Synthroid) 75 mcg DAILY06 PO Last administered on 03/08/22at 05:05; Start 03/08/22 at 06:00 Amlodipine Besylate (Norvasc) 5 mg DAILY PO Last administered on 03/08/22at 09:25; Start 03/08/22 at 09:00 Aripiprazole (Abilify) 5 mg DAILY PO Last administered on 03/08/22at 09:24; Start 03/08/22 at 09:00 Baclofen (Lioresal) 10 mg PRN TID PRN PO MUSCLE SPASMS; Start 03/08/22 at 09:00 Calcium Carbonate/ Glycine (Oscal) 250 mg BIDAFTMEAL PO ; Start 03/08/22 at 09:00 Calcium Carbonate/ Glycine (Oscal) 1,500 mg QHS PO ; Start 03/08/22 at 21:00 Cetirizine HCl (ZyrTEC) 10 mg DAILY PO Last administered on 03/08/22at 09:23; Start 03/08/22 at 09:00 Colestipol HCl (Colestid) 1 gm QID@1000,1300,1700,2200 PO Last administered on 03/08/22at 09:23; Start 03/08/22 at 09:00 Duloxetine HCl (Cymbalta) 30 mg DAILY PO Last administered on 03/08/22at 09:23; Start 03/08/22 at 09:00 Ergocalciferol (Vitamin D2) 50,000 unit WEEKLY PO Last administered on 03/08/22 09:23; Start 03/08/22 at 09:00 Finasteride (Proscar) 5 mg DAILY PO Last administered on 03/08/22at 09:23; Start 03/08/22 at 09:00 Vitamin B Complex/ Vitamin C (Caryn-Anmol) 1 tab DAILY PO Last administered on 03/08/22at 09:23; Start 03/08/22 at 09:00 Gabapentin (Neurontin) 100 mg TID PO Last administered on 03/08/22at 09:24; Start 03/08/22 at 09:00 Hydroxyzine HCl (Atarax) 25 mg PRN BID PRN PO ITCHING; Start 03/08/22 at 09:00 Levothyroxine Sodium (Synthroid) 75 mcg DAILYAC PO ; Start 03/09/22 at 07:30; Status UNV Trazodone HCl (Desyrel) 50 mg HS PO ; Start 03/08/22 at 21:00 Vitamin B Complex (Bairon B) 1 tab DAILY PO ; Start 03/08/22 at 09:00; Status Cancel Calcium Acetate (Phoslo) 1,334 mg TIDWMEALS PO ; Start 03/08/22 at 12:00 Fluticasone Propionate (Flonase) 2 spray DAILY NS ; Start 03/08/22 at 09:00 Non-Formulary Medication (Fluticasone/ Vilanterol (Breo Ellipta 200-25 Mcg INH)) 1 puff DAILY IH ; Start 03/08/22 at 09:00; Status UNV Insulin Glargine (Lantus Syringe) 34 unit QHS SQ ; Start 03/08/22 at 21:00 Atorvastatin Calcium (Lipitor) 80 mg QHS PO ; Start 03/08/22 at 21:00 Sertraline HCl (Zoloft) 100 mg BID PO Last administered on 03/08/22at 09:25; Start 03/08/22 at 09:00 Terazosin HCl (Hytrin) 10 mg QHS PO ; Start 03/08/22 at 21:00 Acetaminophen (Tylenol) 650 mg PRN Q6HRS PRN PO MILD PAIN / TEMP > 100.3'F; S tart 03/08/22 at 09:00 Olanzapine (ZyPREXA ZYDIS) 5 mg PRN BID PRN PO ANXIETY / AGITATION; Start 03/08/22 at 09:00 Hydralazine HCl (Apresoline Inj) 10 mg PRN Q4HRS PRN IVP ELEVATED BP, SEE COMMENTS; Start 03/08/22 at 09:00 Heparin Sodium (Porcine) (Heparin Sodium) 5,000 unit Q8HRS SQ ; Start 03/08/22 at 14:00 Guaifenesin (Robitussin Dm) 10 ml PRN Q6HRS PRN PO COUGH; Start 03/08/22 at 09:00 Tramadol HCl (Ultram) 50 mg PRN Q6HRS PRN PO PAIN; Start 03/08/22 at 09:00 Albuterol Sulfate (Ventolin Neb Soln) 2.5 mg RTQID NEB ; Start 03/08/22 at 09:30 Budesonide (Pulmicort) 0.5 mg RTBID NEB ; Start 03/08/22 at 09:30 Oxycodone HCl (Roxicodone) 10 mg PRN Q6HRS PRN PO SEVERE PAIN 7-10 Last administered on 03/08/22at 09:46; Start 03/08/22 at 09:45 Lidocaine (Lidoderm) 1 patch DAILY TD ; Start 03/08/22 at 10:15 Miscellaneous (Lidoderm Patch Removal) 1 ea QHS MC ; Start 03/08/22 at 21:00 Active Scripts Active Reported Oxycodone-Acetaminophen 10-325 (Oxycodone Hcl/Acetaminophen) 1 Each Tablet 1 Tab PO PRN Q6HRS PRN Lutein 20 Mg Capsule 20 Mg PO DAILY10 Klonopin (Clonazepam) 0.5 Mg Tablet 0.5 Mg PO TID Breo Ellipta 200-25 Mcg INH (Fluticasone/Vilanterol) 1 Each Blst.w.dev 1 Puff IH DAILY Levemir (Insulin Detemir) 100 Unit/1 Ml Vial 34 Unit SQ HS Calcium Carbonate 500 Mg Tablet 3 Tab PO QHS 30 Days Calcium Carbonate 500 Mg Tablet 0.5 Tab PO BIDAFTMEAL 30 Days Hydroxyzine Hcl 25 Mg Tablet 1 Tab PO BID Finasteride 5 Mg Tablet 5 Mg PO DAILY Testosterone Cypionate 200 Mg/1 Ml Vial 1 Ml IM Q2WKS Pregabalin 50 Mg Capsule 1 Cap PO QHS PRN Nephro-Anmol Tablet (Folic Acid/Vitamin B Comp W-C) 0.8 Mg Tablet 1 Tab PO DAILY Sildenafil Citrate 25 Mg Tablet 25 Mg PO PRN DAILY PRN Doxycycline Hyclate 100 Mg Capsule 1 Cap PO BID Calcium Acetate 667 Mg Tablet 2 Tab PO TID 30 Days Rosuvastatin Calcium 20 Mg Tablet 20 Mg PO DAILY Gabapentin (Gabapentin) 400 Mg Capsule 400 Mg PO TID Lisinopril 20 Mg Tablet 20 Mg PO BID Duloxetine Hcl 30 Mg Capsule.dr 30 Mg PO DAILY Sertraline Hcl 100 Mg Tablet 100 Mg PO BID Omeprazole Magnesium 20 Mg Capsule.dr 40 Mg PO BID Vitamin D2 (Ergocalciferol (Vitamin D2)) 1,250 Mcg Capsule 5,000 Intlu PO WEEKLY Vitamin B Complex 1 Each Tablet 1 Each PO DAILY Colestipol Hcl 1 Gm Tablet 1 Gm PO QID Terazosin Hcl 10 Mg Capsule 1 Cap PO DAILY Baclofen 10 Mg Tablet 1 Tab PO TID Zofran (Ondansetron Hcl) 4 Mg Tablet 1 Tab PO PRN Q6-8HRS Klor-Con 10 (Potassium Chloride) 10 Meq Tablet.er 1 Tab PO DAILY 30 Days Amlodipine Besylate 5 Mg Tablet 5 Mg PO DAILY Flonase Allergy Relief (Fluticasone Propionate) 9.9 Ml [place].susp 2 Sprays NS DAILY Imodium A-D (Loperamide Hcl) 1 Mg/7.5 Ml Liquid 2 Mg PO PRN Q4HRS PRN Zyrtec (Cetirizine Hcl) 10 Mg Tablet 10 Mg PO DAILY Synthroid (Levothyroxine Sodium) 75 Mcg Tablet 75 Mcg PO DAILYAC Trazodone Hcl 50 Mg Tablet 50 Mg PO HS Abilify (Aripiprazole) 5 Mg Tablet 5 Mg PO DAILY Levemir Flextouch (Insulin Detemir) 100 Unit/1 Ml Insuln.pen 34 Unit SQ PRN BID PRN MDD Dicyclomine Hcl 20 Mg Tablet 20 Mg PO QID Allergies Allergies: Coded Allergies: NSAIDS (Non-Steroidal Anti-Inflamma (Verified Allergy, Intermediate, 10/18/18) cyclobenzaprine (Verified Allergy, Intermediate, 10/18/18) fentanyl (Verified Allergy, Intermediate, 10/18/18) morphine (Verified Allergy, Intermediate, headache, 10/18/18) tamsulosin (Verified Allergy, Intermediate, 10/18/18) Sulfa (Sulfonamide Antibiotics) (Verified Adverse Reaction, Intermediate, PALIPTATIONS, 10/18/18) ROS Review of System As per HPI, rest of the ROS is negative Physical Exam Physical Exam General NAD HEEN OM moist ,anicteric, BiPAP, chronic Neck Supple Lungs CTA , Non labored CV s1s2v Abd Obese , NT, soft Ext Lt BKA Neuro Grossly normal Psych Cooperative No Jacobs Derm No Rash Vital Signs Vital Signs Date Time Temp Pulse Resp B/P (MAP) Pulse Ox O2 Delivery O2 Flow Rate FiO2 03/08/22 09:46 BiPAP/CPAP 03/08/22 09:25 61 154/72 03/08/22 07:00 97.8 20 97 97.8 03/08/22 04:31 2.0 Assessment & Plan ESRD on HD @ [facility] . Dialyzed yesterday for 3 hrs . Clinically stable, E-Lytes stable.No emergent indication for dialysis today Access- AV access- Lt Arm. Infilterated at OP unit few days basc. He has Tunneled HDC as well Renal Calculus - Nonobstructing calculi bilaterally. Anemia - Hgb stable, EMMY HyperKalemia- Mild- Dialysis tomorrow HypoCalcemia- Mildly low after correcting for Albumin, replace . On CACO3 at home as replacement . Will give IV dose x1 DM- Per PRIMARY Labs Labs Laboratory Tests Test 03/07/22 15:16 03/07/22 17:23 03/07/22 20:50 03/08/22 07:31 White Blood Count 9.2 x10^3/uL (4.0-11.0) Red Blood Count 3.12 x10^6/uL (4.30-5.70) Hemoglobin 9.3 g/dL (13.0-17.5) Hematocrit 28.0 % (39.0-53.0) Mean Corpuscular Volume 90 fL (79-100) Mean Corpuscular Hemoglobin 30 pg (25-35) Mean Corpuscular Hemoglobin Concent 33 g/dL (31-37) Red Cell Distribution Width 15.8 % (11.5-14.5) Platelet Count 201 x10^3/uL (140-400) Neutrophils (%) (Auto) 87 % (31-73) Lymphocytes (%) (Auto) 6 % (24-48) Monocytes (%) (Auto) 5 % (0-9) Eosinophils (%) (Auto) 2 % (0-3) Basophils (%) (Auto) 0 % (0-3) Neutrophils # (Auto) 8.0 x10^3/uL (1.8-7.7) Lymphocytes # (Auto) 0.5 x10^3/uL (1.0-4.8) Monocytes # (Auto) 0.5 x10^3/uL (0.0-1.1) Eosinophils # (Auto) 0.1 x10^3/uL (0.0-0.7) Basophils # (Auto) 0.0 x10^3/uL (0.0-0.2) Prothrombin Time 13.4 SEC (11.7-14.0) Prothromb Time International Ratio 1.1 (0.8-1.1) Activated Partial Thromboplast Time 28 SEC (24-38) Sodium Level 143 mmol/L (136-145) Potassium Level 3.3 mmol/L (3.5-5.1) Chloride Level 103 mmol/L (98-107) Carbon Dioxide Level 26 mmol/L (21-32) Anion Gap 14 (6-14) Blood Urea Nitrogen 25 mg/dL (8-26) Creatinine 0.8 mg/dL (0.7-1.3) Estimated GFR (Cockcroft-Gault) 98.0 BUN/Creatinine Ratio 31 (6-20) Glucose Level 80 mg/dL (70-99) Lactic Acid Level 1.0 mmol/L (0.4-2.0) Calcium Level 8.8 mg/dL (8.5-10.1) Magnesium Level 1.7 mg/dL (1.8-2.4) Total Bilirubin 0.3 mg/dL (0.2-1.0) Aspartate Amino Transf (AST/SGOT) 18 U/L (15-37) Alanine Aminotransferase (ALT/SGPT) 27 U/L (16-63) Alkaline Phosphatase 55 U/L (46-116) Ammonia < 10 mcmol/L (11-34) Creatine Kinase 171 U/L (39-308) Creatine Kinase MB (Mass) 6.1 ng/mL (0.0-3.6) Creatine Kinase MB Relative Index 3.6 % (0-4) Troponin I High Sensitivity 9 ng/L (4-75) Total Protein 7.0 g/dL (6.4-8.2) Albumin 3.5 g/dL (3.4-5.0) Albumin/Globulin Ratio 1.0 (1.0-1.7) Influenza Type A Antigen Negative (NEGATIVE) Influenza Type B Antigen Negative (NEGATIVE) SARS-CoV-2 Antigen (Rapid) Negative (NEGATIVE) Glucose (Fingerstick) 166 mg/dL (70-99) 156 mg/dL (70-99) Test 03/08/22 09:27 Sodium Level 142 mmol/L (136-145) Potassium Level 5.2 mmol/L (3.5-5.1) Chloride Level 100 mmol/L (98-107) Carbon Dioxide Level 27 mmol/L (21-32) Anion Gap 15 (6-14) Blood Urea Nitrogen 57 mg/dL (8-26) Creatinine 6.6 mg/dL (0.7-1.3) Estimated GFR (Cockcroft-Gault) 8.6 Glucose Level 237 mg/dL (70-99) Calcium Level 7.0 mg/dL (8.5-10.1) Phosphorus Level 6.8 mg/dL (2.6-4.7) Albumin 2.8 g/dL (3.4-5.0) Laboratory Tests Test 03/07/22 15:16 03/07/22 17:23 03/07/22 20:50 03/08/22 07:31 White Blood Count 9.2 x10^3/uL (4.0-11.0) Red Blood Count 3.12 x10^6/uL (4.30-5.70) Hemoglobin 9.3 g/dL (13.0-17.5) Hematocrit 28.0 % (39.0-53.0) Mean Corpuscular Volume 90 fL (79-100) Mean Corpuscular Hemoglobin 30 pg (25-35) Mean Corpuscular Hemoglobin Concent 33 g/dL (31-37) Red Cell Distribution Width 15.8 % (11.5-14.5) Platelet Count 201 x10^3/uL (140-400) Neutrophils (%) (Auto) 87 % (31-73) Lymphocytes (%) (Auto) 6 % (24-48) Monocytes (%) (Auto) 5 % (0-9) Eosinophils (%) (Auto) 2 % (0-3) Basophils (%) (Auto) 0 % (0-3) Neutrophils # (Auto) 8.0 x10^3/uL (1.8-7.7) Lymphocytes # (Auto) 0.5 x10^3/uL (1.0-4.8) Monocytes # (Auto) 0.5 x10^3/uL (0.0-1.1) Eosinophils # (Auto) 0.1 x10^3/uL (0.0-0.7) Basophils # (Auto) 0.0 x10^3/uL (0.0-0.2) Prothrombin Time 13.4 SEC (11.7-14.0) Prothromb Time International Ratio 1.1 (0.8-1.1) Activated Partial Thromboplast Time 28 SEC (24-38) Sodium Level 143 mmol/L (136-145) Potassium Level 3.3 mmol/L (3.5-5.1) Chloride Level 103 mmol/L (98-107) Carbon Dioxide Level 26 mmol/L (21-32) Anion Gap 14 (6-14) Blood Urea Nitrogen 25 mg/dL (8-26) Creatinine 0.8 mg/dL (0.7-1.3) Estimated GFR (Cockcroft-Gault) 98.0 BUN/Creatinine Ratio 31 (6-20) Glucose Level 80 mg/dL (70-99) Lactic Acid Level 1.0 mmol/L (0.4-2.0) Calcium Level 8.8 mg/dL (8.5-10.1) Magnesium Level 1.7 mg/dL (1.8-2.4) Total Bilirubin 0.3 mg/dL (0.2-1.0) Aspartate Amino Transf (AST/SGOT) 18 U/L (15-37) Alanine Aminotransferase (ALT/SGPT) 27 U/L (16-63) Alkaline Phosphatase 55 U/L (46-116) Ammonia < 10 mcmol/L (11-34) Creatine Kinase 171 U/L (39-308) Creatine Kinase MB (Mass) 6.1 ng/mL (0.0-3.6) Creatine Kinase MB Relative Index 3.6 % (0-4) Troponin I High Sensitivity 9 ng/L (4-75) Total Protein 7.0 g/dL (6.4-8.2) Albumin 3.5 g/dL (3.4-5.0) Albumin/Globulin Ratio 1.0 (1.0-1.7) Influenza Type A Antigen Negative (NEGATIVE) Influenza Type B Antigen Negative (NEGATIVE) SARS-CoV-2 Antigen (Rapid) Negative (NEGATIVE) Glucose (Fingerstick) 166 mg/dL (70-99) 156 mg/dL (70-99) Test 03/08/22 09:27 Sodium Level 142 mmol/L (136-145) Potassium Level 5.2 mmol/L (3.5-5.1) Chloride Level 100 mmol/L (98-107) Carbon Dioxide Level 27 mmol/L (21-32) Anion Gap 15 (6-14) Blood Urea Nitrogen 57 mg/dL (8-26) Creatinine 6.6 mg/dL (0.7-1.3) Estimated GFR (Cockcroft-Gault) 8.6 Glucose Level 237 mg/dL (70-99) Calcium Level 7.0 mg/dL (8.5-10.1) Phosphorus Level 6.8 mg/dL (2.6-4.7) Albumin 2.8 g/dL (3.4-5.0) Review All relevant outside records, renal labs, imaging studies, telemetry/EKG's were reviewed. Images Images EXAM: CT Chest, Abdomen and Pelvis without IV contrast CLINICAL HISTORY: Reason: left chest/LUQ abdominal pain s/p fall / Spl. Instructions: / History: COMPARISON: None. TECHNIQUE: Helical CT of the chest, abdomen and pelvis was performed without intravenous contrast. Axial, coronal and sagittal reformatted images were generated. ---PQRS compliance statement - One or more of the following individualized dose reduction techniques were utilized for this study: 1. Automated exposure control 2. Adjustment of the mA and/or kV according to patient size 3. Use of iterative reconstruction technique--- FINDINGS: Lack of intravenous contrast limits evaluation of solid organs, vasculature, and lymph nodes. Chest: Right IJ catheter tip terminates within the right atrium. Heart is not enlarged. Coronary calcifications. No pericardial effusion. No pleural effusion. No pneumothorax. Bandlike opacities lower lobes predominantly dependently and in the lingula likely scarring/atelectasis. 4 mm right upper lobe lung nodule (image 34). No thoracic lymphadenopathy within the constraints of this noncontrast examination. Abdomen and Pelvis: No focal liver lesion. Liver is enlarged measuring 22.5 cm in length. Spleen is enlarged. Calcified gallstones are seen dependently within the gallbladder. No biliary ductal dilatation. Pancreas and left adrenal glands unremarkable. 1.8 cm right adrenal nodule, indeterminate. Bilateral nonobstructing renal calculi including punctate right interpolar and 1.3 cm left interpolar renal calculi. No hydronephrosis. No hydroureter. Bladder is unremarkable. Appendix is normal. Moderate colonic stool content is seen. No small or large bowel dilatation. No bowel obstruction. Changes of gastric bypass are seen. No abdominal or pelvic ascites. No abdominal or pelvic lymphadenopathy. Bones: Prominent Schmorl's node superior endplate L3. Hip joint degenerative changes bilaterally. Chronic deformity left hip joint, possibly from old fracture. Several acute subacute left lateral and anterolateral rib fractures are seen from the left fifth rib 11th rib. IMPRESSION: 1. Acute and subacute fractures in the anterolateral and lateral left ribs as above. 2. Hepatomegaly. Splenomegaly. 3. Cholelithiasis without CT evidence for fecal cystitis. 4. Lower lobe and lingular wedge-shaped opacities likely scarring/atelectasis. 5. Nonobstructing calculi bilaterally. 6. 4 mm right upper lobe lung nodule. Per Fleischner Society guidelines for incidentally found solid nodules measuring less than 6 mm, no follow-up is necessary if patient is considered at low risk for lung cancer. If patient is considered to be at high risk, such as with history of smoking, then CT follow- up in about 12 months can be considered. 7. Deformity left hip/femoral neck, likely chronic, possibly from old fracture. Electronically signed by: Herrera Wagner MD (03/07/2022 4:40 PM) [facility], SACRAMENTOBATSHEVA WILKINS MD March 08, 2022 10:28
[2022-03-08 11:00] VITALS: BP 140/61
[2022-03-08] MEDS: BUDESONIDE 0.5 MG/2 ML NEBU. NEB SCH ×2 (11:53→20:38)
[2022-03-08] MEDS: CALCIUM ACETATE 667 MG CAPSULE PO SCH ×2 (12:24→16:49)
[2022-03-08 15:00] VITALS: BP 135/61
[2022-03-08] MEDS: HEPARIN for SUB-Q USE 5,000 UNIT/ML VIAL. SQ SCH ×2 (15:07→22:32)
[2022-03-08] MEDS ORDERED: INSULIN LISPRO 300 UNITS/3 ML VIAL. SQ SCH (16:45)
[2022-03-08] MEDS ORDERED: CALCIUM CHLORIDE 1,000 MG in IV NORMAL SALINE 100ML 100 ML IV ONE (18:00)
[2022-03-08 19:16] VITALS: BP 148/64
[2022-03-08] MEDS ORDERED: INSULIN GLARGINE SYRINGE. SQ SCH ×2 (21:00)
[2022-03-08] MEDS: PATCH REMOVAL. MC SCH (21:00)
[2022-03-08] MEDS: ATORVASTATIN CALCIUM 40 MG TABLET. PO SCH (21:38)
[2022-03-08] MEDS: traZODone 50 MG TABLET. PO SCH (21:39)
[2022-03-08] MEDS: TERAZOSIN 5 MG CAPSULE. PO SCH (21:42)
[2022-03-08 22:39] VITALS: BP 150/69
[2022-03-09 02:43] VITALS: BP 142/67
[2022-03-09] MEDS: LEVOTHYROXINE 75 MCG TABLET PO SCH (05:09)
[2022-03-09] MEDS: oxyCODONE IR 5 MG TABLET PO PRN ×4 (05:11→21:20)
[2022-03-09] MEDS: HEPARIN for SUB-Q USE 5,000 UNIT/ML VIAL. SQ SCH ×2 (05:13→15:09)
[2022-03-09 06:27] VITALS: BP 143/64
[2022-03-09 06:33] LABS: CALCIUM 7.8 mg/dL (8.5-10.1); CREATININE 8.1 mg/dL (0.7-1.3); GFR 6.8; POTASSIUM 4.2 mmol/L (3.5-5.1)
[2022-03-09] MEDS: ALBUTEROL SULFATE 2.5 MG/3 ML NEBU. NEB SCH ×3 (07:18→20:39)
[2022-03-09] MEDS: BUDESONIDE 0.5 MG/2 ML NEBU. NEB SCH ×2 (07:18→20:39)
[2022-03-09] MEDS ORDERED: LEVOTHYROXINE 75 MCG TABLET PO SCH (07:30)
[2022-03-09] MEDS ORDERED: DIALYSIS PATIENT. MC PRN ×2 (07:30)
[2022-03-09] MEDS: INSULIN LISPRO 300 UNITS/3 ML VIAL. SQ SCH ×7 (07:30→21:31)
[2022-03-09] MEDS ORDERED: IV NORMAL SALINE 1000ML BAG 1,000 ML IV PRN ×2 (07:30)
[2022-03-09] MEDS: FLUTICASONE 50MCG/NASAL SPRAY 16GM BOTTLE. NS SCH (08:08)
[2022-03-09] MEDS: LIDOCAINE (700MG/PATCH) PATCH. TD SCH (08:10)
[2022-03-09] MEDS: GABAPENTIN 100 MG CAPSULE. PO SCH ×3 (08:10→20:57)
[2022-03-09] MEDS: FOLIC/VIT B COMP W-C (RENAL) TABLET. PO SCH (08:11)
[2022-03-09] MEDS: CALCIUM CARBONATE 500 MG TABLET PO SCH ×3 (08:12→21:24)
[2022-03-09] MEDS: DULoxetine HCL 30 MG CAPSULE.DR PO SCH (08:12)
[2022-03-09] MEDS: CALCIUM ACETATE 667 MG CAPSULE PO SCH ×3 (08:13→17:08)
[2022-03-09] MEDS: ARIPiprazole 5 MG TABLET PO SCH (08:13)
[2022-03-09] MEDS: CETIRIZINE HCL 10 MG TABLET. PO SCH (08:13)
[2022-03-09] MEDS: FINASTERIDE 5 MG TABLET. PO SCH (08:13)
[2022-03-09] MEDS: SERTRALINE 50 MG TABLET. PO SCH ×2 (08:14→20:57)
--- NOTE | 2022-03-09 09:58 | PDOC ---
DATE OF SERVICE DATE: 03/09/22 TIME: 09:58 SUBJECTIVE ROS Seen during dialysis . States little better but not back ti his baseline- Brain still feeling foggy OBJECTIVE Vital Signs Vital Signs Date Time Temp Pulse Resp B/P (MAP) Pulse Ox O2 Delivery O2 Flow Rate FiO2 03/09/22 07:21 97 Nasal Cannula 3.0 03/09/22 06:27 97.6 68 16 143/64 (90) 97.6 I & 0 Intake and Output 03/09/22 07:00 Intake Total 1230 ml Output Total 250 ml Balance 980 ml Intake Oral 1120 ml IV Total 110 ml Output Urine Total 250 ml PHYSICAL EXAM Physical Exam General NAD HEEN OM moist ,anicteric, Neck Supple Lungs CTA , Non labored CV s1s2v Abd Obese , NT, soft Ext Lt BKA Neuro Grossly normal Psych Cooperative No Jacobs Derm No Rash DIAGNOSIS/ASSESSMENT Assessment & Plan ESRD on HD @ [facility] Seen during dialysis. Tolerating well. Continue as ordered. Bob WALLER Access- AV access- Lt Arm. Infiltrated at OP unit few days back.Lt arm swollen Using Tunneled HDC for dialysis Renal Calculus - Nonobstructing calculi bilaterally. Anemia - Hgb stable, EMMY HyperKalemia- Mild- Dialysis tomorrow HypoCalcemia- Mildly low after correcting for Albumin, replace . On CACO3 at home as replacement . DM- Per PRIMARY COMMENT/RELEVANT DATA Meds Current Medications Medications (Trade) Dose Ordered Sig/Louisa Start Time Stop Time Status Last Admin Dose Admin Acetaminophen (Tylenol) 650 mg PRN Q6HRS PRN 03/08/22 09:00 Albuterol Sulfate (Ventolin Neb Soln) 2.5 mg RTQID 03/08/22 09:30 03/09/22 07:18 2.5 MG Amlodipine Besylate (Norvasc) 5 mg DAILY 03/08/22 09:00 03/08/22 09:25 5 MG Aripiprazole (Abilify) 5 mg DAILY 03/08/22 09:00 03/09/22 08:13 5 MG Atorvastatin Calcium (Lipitor) 80 mg QHS 03/08/22 21:00 03/08/22 21:38 80 MG Baclofen (Lioresal) 10 mg PRN TID PRN 03/08/22 09:00 Budesonide (Pulmicort) 0.5 mg RTBID 03/08/22 09:30 03/09/22 07:18 0.5 MG Calcium Acetate (Phoslo) 1,334 mg TIDWMEALS 03/08/22 12:00 03/09/22 08:13 1,334 MG Calcium Carbonate/ Glycine (Oscal) 1,500 mg QHS 03/08/22 21:00 03/08/22 21:38 1,500 MG Calcium Chloride 1000 mg/Sodium Chloride 110 ml @ 110 mls/hr 1X ONCE 03/08/22 18:00 03/08/22 18:59 DC 03/08/22 18:15 110 MLS/HR Cetirizine HCl (ZyrTEC) 10 mg DAILY 03/08/22 09:00 03/09/22 08:13 10 MG Colestipol HCl (Colestid) 1 gm QID@1000,1300,1700,2200 03/08/22 09:00 03/08/22 21:39 1 GM Dextrose (Dextrose 50%-Water Syringe) 12.5 gm PRN Q15MIN PRN 03/07/22 17:30 Duloxetine HCl (Cymbalta) 30 mg DAILY 03/08/22 09:00 03/09/22 08:12 30 MG Ergocalciferol (Vitamin D2) 50,000 unit WEEKLY 03/08/22 09:00 03/08/22 09:23 50,000 UNIT Finasteride (Proscar) 5 mg DAILY 03/08/22 09:00 03/09/22 08:13 5 MG Fluticasone Propionate (Flonase) 2 spray DAILY 03/08/22 09:00 03/09/22 08:08 2 SPRAY Gabapentin (Neurontin) 100 mg TID 03/08/22 09:00 03/09/22 08:10 100 MG Guaifenesin (Robitussin Dm) 10 ml PRN Q6HRS PRN 03/08/22 09:00 Heparin Sodium (Porcine) (Heparin Sodium) 5,000 unit Q8HRS 03/08/22 14:00 03/09/22 05:13 5,000 UNIT Hydralazine HCl (Apresoline Inj) 10 mg PRN Q4HRS PRN 03/08/22 09:00 Hydroxyzine HCl (Atarax) 25 mg PRN BID PRN 03/08/22 09:00 Info (PHARMACY MONITORING -- do not chart) 1 each PRN DAILY PRN 03/09/22 07:30 Insulin Glargine (Lantus Syringe) 34 unit QHS 03/09/22 21:00 Insulin Human Lispro (HumaLOG) 5 units TIDAC 03/09/22 07:30 Levothyroxine Sodium (Synthroid) 75 mcg DAILYAC 03/09/22 07:30 UNV Lidocaine (Lidoderm) 1 patch DAILY 03/08/22 10:15 03/09/22 08:10 1 PATCH Miscellaneous (Lidoderm Patch Removal) 1 ea QHS 03/08/22 21:00 Non-Formulary Medication (Fluticasone/ Vilanterol (Breo Ellipta 200-25 Mcg INH)) 1 puff DAILY 03/08/22 09:00 UNV Olanzapine (ZyPREXA ZYDIS) 5 mg PRN BID PRN 03/08/22 09:00 Ondansetron HCl (Zofran) 4 mg PRN Q8HRS PRN 03/07/22 17:30 03/08/22 17:29 DC 03/07/22 19:59 4 MG Oxycodone HCl (Roxicodone) 10 mg PRN Q6HRS PRN 03/08/22 09:45 03/09/22 05:11 10 MG Sertraline HCl (Zoloft) 100 mg BID 03/08/22 09:00 03/09/22 08:14 100 MG Sodium Chloride 1,000 ml @ 400 mls/hr Q2H30M PRN 03/09/22 07:30 03/09/22 19:29 Terazosin HCl (Hytrin) 10 mg QHS 03/08/22 21:00 03/08/22 21:42 10 MG Thiamine HCl (Thiamine Im) 100 mg 1X ONCE 03/08/22 05:00 03/08/22 05:02 DC 03/08/22 05:05 100 MG Tramadol HCl (Ultram) 50 mg PRN Q6HRS PRN 03/08/22 09:00 Trazodone HCl (Desyrel) 50 mg HS 03/08/22 21:00 03/08/22 21:39 50 MG Vitamin B Complex (Bairon B) 1 tab DAILY 03/08/22 09:00 Cancel Vitamin B Complex/ Vitamin C (Caryn-Anmol) 1 tab DAILY 03/08/22 09:00 03/09/22 08:11 1 TAB Lab Laboratory Tests Test 03/08/22 11:41 03/08/22 16:42 03/08/22 20:08 03/09/22 05:55 Glucose (Fingerstick) 178 mg/dL (70-99) 188 mg/dL (70-99) 278 mg/dL (70-99) Sodium Level 141 mmol/L (136-145) Potassium Level 4.2 mmol/L (3.5-5.1) Chloride Level 100 mmol/L (98-107) Carbon Dioxide Level 24 mmol/L (21-32) Anion Gap 17 (6-14) Blood Urea Nitrogen 74 mg/dL (8-26) Creatinine 8.1 mg/dL (0.7-1.3) Estimated GFR (Cockcroft-Gault) 6.8 Glucose Level 173 mg/dL (70-99) Calcium Level 7.8 mg/dL (8.5-10.1) Test 03/09/22 07:35 Glucose (Fingerstick) 156 mg/dL (70-99) Results All relevant outside records, renal labs, imaging studies, telemetry/EKG's were reviewed. Justicifation of Admission Dx: Justifications for Admission: Justification of Admission Dx: N/A BATSHEVA CLEMENTS MD March 09, 2022 09:58
--- NOTE | 2022-03-09 11:58 | PDOC ---
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 We will have pulmonology to see FEN - Renal dialysis PPX - heparin FULL CODE Dispo - inpatient History of Present Illness History of Present Illness Mr Phillips is a 61-year-old male w/ PMHx DM, HTN, hyperlipidemia, ESRD on HD, chronic neck and back pain, s/p L AKA presented to ED from dialysis center due to altered mental status. He did not recall being his dialysis center. Patient reports achy headache and left lower chest/ upper quadrant abdominal pain. Patient reports headache and abdominal pain began on 03/03/2022 following a fall in his bathroom that resulted in head trauma. Patient reports he has been falling more often in the past year. Patient also reports currently working with neurologist regarding tremors/jerks. He also notes he had been taking gabapentin and Lyrica also pain medications and is worried about his spinal stimulator battery that diet has not been replaced. CT chest abdomen pelvis revealed left-sided rib fractures. 03/08: Found with left-sided rib fractures. A little more alert. Having significant left-sided pain at his site of rib fractures requiring IV pain medication and application of Lidoderm patch. May have some pulmonary contusion 03/09: Seen on dialysis still in significant pain notes a ringing in his ears and some abdominal discomfort and worsening left-sided chest pain. Lidoderm patch did help temporarily. He lost IV access and has some significant swelling in his right arm pending venous Doppler and some hematoma in his left upper extremity fistula site is dialyzing on his HD catheter today. Vitals/I&O Vitals/I&O: Vital Signs Date Time Temp Pulse Resp B/P (MAP) Pulse Ox O2 Delivery O2 Flow Rate FiO2 03/09/22 08:00 Nasal Cannula 2.0 03/09/22 07:21 97 03/09/22 06:27 97.6 68 16 143/64 (90) 97.6 I & O 03/08/22 03/08/22 03/09/22 15:00 23:00 07:00 Intake Total 610 ml 620 ml 0 ml Output Total 250 ml Balance 610 ml 620 ml -250 ml Physical Exam General: Alert, Cooperative Heart: Regular rate, Normal S1, Normal S2 Lungs: Clear Abdomen: Normal bowel sounds, Soft Extremities: No clubbing, No cyanosis Skin: No rashes, No breakdown Labs Labs: Laboratory Tests Test 03/08/22 16:42 03/08/22 20:08 03/09/22 05:55 03/09/22 07:35 Glucose (Fingerstick) 188 mg/dL (70-99) 278 mg/dL (70-99) 156 mg/dL (70-99) Sodium Level 141 mmol/L (136-145) Potassium Level 4.2 mmol/L (3.5-5.1) Chloride Level 100 mmol/L (98-107) Carbon Dioxide Level 24 mmol/L (21-32) Anion Gap 17 (6-14) Blood Urea Nitrogen 74 mg/dL (8-26) Creatinine 8.1 mg/dL (0.7-1.3) Estimated GFR (Cockcroft-Gault) 6.8 Glucose Level 173 mg/dL (70-99) Calcium Level 7.8 mg/dL (8.5-10.1) Assessment and Plan Assessmemt and Plan Problems Medical Problems: (1) Altered mental status Status: Acute (2) ESRD (end stage renal disease) on dialysis Status: Acute Comment Review of Relevant I have reviewed the following items issa (where applicable) has been applied. Medications: Current Medications Medications (Trade) Dose Ordered Sig/Louisa Route PRN Reason Start Time Stop Time Status Last Admin Dose Admin Calcium Carbonate/ Glycine (Oscal) 1,500 mg QHS PO 03/08/22 21:00 03/08/22 21:38 Trazodone HCl (Desyrel) 50 mg HS PO 03/08/22 21:00 03/08/22 21:39 Calcium Acetate (Phoslo) 1,334 mg TIDWMEALS PO 03/08/22 12:00 03/09/22 08:13 Atorvastatin Calcium (Lipitor) 80 mg QHS PO 03/08/22 21:00 03/08/22 21:38 Terazosin HCl (Hytrin) 10 mg QHS PO 03/08/22 21:00 03/08/22 21:42 Heparin Sodium (Porcine) (Heparin Sodium) 5,000 unit Q8HRS SQ 03/08/22 14:00 03/09/22 05:13 Insulin Glargine (Lantus Syringe) 28 unit QHS SQ 03/08/22 21:00 03/09/22 07:19 DC 03/08/22 22:31 Insulin Human Lispro (HumaLOG) 3 units TIDAC SQ 03/08/22 16:45 03/09/22 07:19 DC 03/08/22 16:57 Insulin Human Lispro (HumaLOG) 0-9 UNITS TIDACHC SQ 03/08/22 16:45 03/09/22 08:22 Calcium Chloride 1000 mg/Sodium Chloride 110 ml @ 110 mls/hr 1X ONCE IV 03/08/22 18:00 03/08/22 18:59 DC 03/08/22 18:15 Justifications for Admission Other Justification MCKAYLA LI MD March 09, 2022 11:58
[2022-03-09] MEDS: COLESTIPOL HCL 1 GM TABLET PO SCH ×3 (12:55→17:08)
[2022-03-09] MEDS ORDERED: ONDANSETRON ODT 4 MG TAB.RAPDIS. PO PRN (13:45)
--- NOTE | 2022-03-09 14:01 | PDOC ---
PULMONARY PROGRESS NOTES DATE: 03/09/22 TIME: 14:00 Vitals Vital Signs Date Time Temp Pulse Resp B/P (MAP) Pulse Ox O2 Delivery O2 Flow Rate FiO2 03/09/22 13:02 Room Air 03/09/22 12:57 84 157/67 03/09/22 08:00 2.0 03/09/22 07:21 97 03/09/22 06:27 97.6 16 97.6 Lungs: Clear Labs Laboratory Tests Test 03/07/22 15:16 03/07/22 17:23 03/07/22 20:50 03/08/22 07:31 White Blood Count 9.2 x10^3/uL (4.0-11.0) Red Blood Count 3.12 x10^6/uL (4.30-5.70) Hemoglobin 9.3 g/dL (13.0-17.5) Hematocrit 28.0 % (39.0-53.0) Mean Corpuscular Volume 90 fL (79-100) Mean Corpuscular Hemoglobin 30 pg (25-35) Mean Corpuscular Hemoglobin Concent 33 g/dL (31-37) Red Cell Distribution Width 15.8 % (11.5-14.5) Platelet Count 201 x10^3/uL (140-400) Neutrophils (%) (Auto) 87 % (31-73) Lymphocytes (%) (Auto) 6 % (24-48) Monocytes (%) (Auto) 5 % (0-9) Eosinophils (%) (Auto) 2 % (0-3) Basophils (%) (Auto) 0 % (0-3) Neutrophils # (Auto) 8.0 x10^3/uL (1.8-7.7) Lymphocytes # (Auto) 0.5 x10^3/uL (1.0-4.8) Monocytes # (Auto) 0.5 x10^3/uL (0.0-1.1) Eosinophils # (Auto) 0.1 x10^3/uL (0.0-0.7) Basophils # (Auto) 0.0 x10^3/uL (0.0-0.2) Prothrombin Time 13.4 SEC (11.7-14.0) Prothromb Time International Ratio 1.1 (0.8-1.1) Activated Partial Thromboplast Time 28 SEC (24-38) Sodium Level 143 mmol/L (136-145) Potassium Level 3.3 mmol/L (3.5-5.1) Chloride Level 103 mmol/L (98-107) Carbon Dioxide Level 26 mmol/L (21-32) Anion Gap 14 (6-14) Blood Urea Nitrogen 25 mg/dL (8-26) Creatinine 0.8 mg/dL (0.7-1.3) Estimated GFR (Cockcroft-Gault) 98.0 BUN/Creatinine Ratio 31 (6-20) Glucose Level 80 mg/dL (70-99) Lactic Acid Level 1.0 mmol/L (0.4-2.0) Calcium Level 8.8 mg/dL (8.5-10.1) Magnesium Level 1.7 mg/dL (1.8-2.4) Total Bilirubin 0.3 mg/dL (0.2-1.0) Aspartate Amino Transf (AST/SGOT) 18 U/L (15-37) Alanine Aminotransferase (ALT/SGPT) 27 U/L (16-63) Alkaline Phosphatase 55 U/L (46-116) Ammonia < 10 mcmol/L (11-34) Creatine Kinase 171 U/L (39-308) Creatine Kinase MB (Mass) 6.1 ng/mL (0.0-3.6) Creatine Kinase MB Relative Index 3.6 % (0-4) Troponin I High Sensitivity 9 ng/L (4-75) Total Protein 7.0 g/dL (6.4-8.2) Albumin 3.5 g/dL (3.4-5.0) Albumin/Globulin Ratio 1.0 (1.0-1.7) Coronavirus (COVID-19)(PCR) Not detected (NOT DETECTD) Influenza Type A Antigen Negative (NEGATIVE) Influenza Type B Antigen Negative (NEGATIVE) SARS-CoV-2 Antigen (Rapid) Negative (NEGATIVE) Glucose (Fingerstick) 166 mg/dL (70-99) 156 mg/dL (70-99) Test 03/08/22 09:27 03/08/22 11:41 03/08/22 16:42 03/08/22 20:08 Sodium Level 142 mmol/L (136-145) Potassium Level 5.2 mmol/L (3.5-5.1) Chloride Level 100 mmol/L (98-107) Carbon Dioxide Level 27 mmol/L (21-32) Anion Gap 15 (6-14) Blood Urea Nitrogen 57 mg/dL (8-26) Creatinine 6.6 mg/dL (0.7-1.3) Estimated GFR (Cockcroft-Gault) 8.6 Glucose Level 237 mg/dL (70-99) Calcium Level 7.0 mg/dL (8.5-10.1) Phosphorus Level 6.8 mg/dL (2.6-4.7) Albumin 2.8 g/dL (3.4-5.0) Glucose (Fingerstick) 178 mg/dL (70-99) 188 mg/dL (70-99) 278 mg/dL (70-99) Test 03/09/22 05:55 03/09/22 07:35 03/09/22 12:53 Sodium Level 141 mmol/L (136-145) Potassium Level 4.2 mmol/L (3.5-5.1) Chloride Level 100 mmol/L (98-107) Carbon Dioxide Level 24 mmol/L (21-32) Anion Gap 17 (6-14) Blood Urea Nitrogen 74 mg/dL (8-26) Creatinine 8.1 mg/dL (0.7-1.3) Estimated GFR (Cockcroft-Gault) 6.8 Glucose Level 173 mg/dL (70-99) Calcium Level 7.8 mg/dL (8.5-10.1) Glucose (Fingerstick) 156 mg/dL (70-99) 148 mg/dL (70-99) Laboratory Tests Test 03/08/22 16:42 03/08/22 20:08 03/09/22 05:55 03/09/22 07:35 Glucose (Fingerstick) 188 mg/dL (70-99) 278 mg/dL (70-99) 156 mg/dL (70-99) Sodium Level 141 mmol/L (136-145) Potassium Level 4.2 mmol/L (3.5-5.1) Chloride Level 100 mmol/L (98-107) Carbon Dioxide Level 24 mmol/L (21-32) Anion Gap 17 (6-14) Blood Urea Nitrogen 74 mg/dL (8-26) Creatinine 8.1 mg/dL (0.7-1.3) Estimated GFR (Cockcroft-Gault) 6.8 Glucose Level 173 mg/dL (70-99) Calcium Level 7.8 mg/dL (8.5-10.1) Test 03/09/22 12:53 Glucose (Fingerstick) 148 mg/dL (70-99) Medications Active Scripts Medications Dose Route/Sig Max Daily Dose Days Date Category Oxycodone-Acetaminophen 10-325 (Oxycodone Hcl/Acetaminophen) 1 Each Tablet 1 Tab PO PRN Q6HRS PRN 03/08/22 Reported Lutein 20 Mg Capsule 20 Mg PO DAILY10 03/08/22 Reported Klonopin (Clonazepam) 0.5 Mg Tablet 0.5 Mg PO TID 03/08/22 Reported Breo Ellipta 200-25 Mcg INH (Fluticasone/Vilanterol) 1 Each Blst.w.dev 1 Puff IH DAILY 03/08/22 Reported Levemir (Insulin Detemir) 100 Unit/1 Ml Vial 34 Unit SQ HS 03/08/22 Reported Calcium Carbonate 500 Mg Tablet 3 Tab PO QHS 30 03/07/22 Reported Calcium Carbonate 500 Mg Tablet 0.5 Tab PO BIDAFTMEAL 30 03/07/22 Reported Hydroxyzine Hcl 25 Mg Tablet 1 Tab PO BID 03/07/22 Reported Finasteride 5 Mg Tablet 5 Mg PO DAILY 03/07/22 Reported Testosterone Cypionate 200 Mg/1 Ml Vial 1 Ml IM Q2WKS 03/07/22 Reported Pregabalin 50 Mg Capsule 1 Cap PO QHS PRN 03/07/22 Reported Nephro-Anmol Tablet (Folic Acid/Vitamin B Comp W-C) 0.8 Mg Tablet 1 Tab PO DAILY 03/07/22 Reported Sildenafil Citrate 25 Mg Tablet 25 Mg PO PRN DAILY PRN 03/07/22 Reported Doxycycline Hyclate 100 Mg Capsule 1 Cap PO BID 03/07/22 Reported Calcium Acetate 667 Mg Tablet 2 Tab PO TID 30 03/07/22 Reported Rosuvastatin Calcium 20 Mg Tablet 20 Mg PO DAILY 03/07/22 Reported Gabapentin (Gabapentin) 400 Mg Capsule 400 Mg PO TID 03/07/22 Reported Lisinopril 20 Mg Tablet 20 Mg PO BID 03/07/22 Reported Duloxetine Hcl 30 Mg Capsule.dr 30 Mg PO DAILY 03/07/22 Reported Sertraline Hcl 100 Mg Tablet 100 Mg PO BID 03/07/22 Reported Omeprazole Magnesium 20 Mg Capsule.dr 40 Mg PO BID 03/07/22 Reported Vitamin D2 (Ergocalciferol (Vitamin D2)) 1,250 Mcg Capsule 5,000 Intlu PO WEEKLY 11/01/20 Reported Vitamin B Complex 1 Each Tablet 1 Each PO DAILY 11/01/20 Reported Colestipol Hcl 1 Gm Tablet 1 Gm PO QID 11/01/20 Reported Terazosin Hcl 10 Mg Capsule 1 Cap PO DAILY 11/01/20 Reported Baclofen 10 Mg Tablet 1 Tab PO TID 11/01/20 Reported Zofran (Ondansetron Hcl) 4 Mg Tablet 1 Tab PO PRN Q6-8HRS 11/01/20 Reported Klor-Con 10 (Potassium Chloride) 10 Meq Tablet.er 1 Tab PO DAILY 30 11/01/20 Reported Amlodipine Besylate 5 Mg Tablet 5 Mg PO DAILY 11/01/20 Reported Flonase Allergy Relief (Fluticasone Propionate) 9.9 Ml [place].susp 2 Sprays NS DAILY 11/01/20 Reported Imodium A-D (Loperamide Hcl) 1 Mg/7.5 Ml Liquid 2 Mg PO PRN Q4HRS PRN 11/01/20 Reported Zyrtec (Cetirizine Hcl) 10 Mg Tablet 10 Mg PO DAILY 10/18/18 Reported Synthroid (Levothyroxine Sodium) 75 Mcg Tablet 75 Mcg PO DAILYAC 10/18/18 Reported Trazodone Hcl 50 Mg Tablet 50 Mg PO HS 10/18/18 Reported Abilify (Aripiprazole) 5 Mg Tablet 5 Mg PO DAILY 10/18/18 Reported Levemir Flextouch (Insulin Detemir) 100 Unit/1 Ml Insuln.pen 34 Unit SQ PRN BID PRN MDD 10/18/18 Reported Dicyclomine Hcl 20 Mg Tablet 20 Mg PO QID 10/18/18 Reported Impression . FULL CONSULT DICTATED THANKS D/W DR LI CT chest abdomen pelvis IMPRESSION: 1. Acute and subacute fractures in the anterolateral and lateral left ribs as above. 2. Hepatomegaly. Splenomegaly. 3. Cholelithiasis without CT evidence for fecal cystitis. 4. Lower lobe and lingular wedge-shaped opacities likely scarring/atelectasis. 5. Nonobstructing calculi bilaterally. 6. 4 mm right upper lobe lung nodule. Per Fleischner Society guidelines for incidentally found solid nodules measuring less than 6 mm, no follow-up is necessary if patient is considered at low risk for lung cancer. If patient is considered to be at high risk, such as with history of smoking, then CT follow- up in about 12 months can be considered. 7. Deformity left hip/femoral neck, likely chronic, possibly from old fracture. ANN MARIE PARISI MD March 09, 2022 14:01
--- NOTE | 2022-03-09 14:26 | RAD ---
EXAMINATION: US DPLX VENOUS EXTREMITY UPPER RT (UPPER EXTREMITY VENOUS ULTRASOUND) CLINICAL HISTORY: Right upper extremity edema. TECHNIQUE: Sonographic grayscale images obtained of the right upper extremity deep venous system with color flow Doppler, compression, and augmentation techniques as indicated. Images obtained and stor ed in a permanent archive. COMPARISON: None FINDINGS: No evidence of absent flow or incompressibility within the internal jugular, subclavian, axillary, an d brachial veins. Visualized radial and ulnar veins appear patent on limited evaluation. No evidence of absent flow or incompressibility within the superficial basilic and cephalic veins. Subcutaneous edema. IMPRESSION: No evidence of right upper extremity DVT. Electronically signed by: Drake Middleton DO (03/09/2022 2:23 PM) MARLEE
[2022-03-09 14:54] VITALS: BP 150/69
--- NOTE | 2022-03-09 16:30 | NUR ---
SS following for discharge planning. SS reviewed pt chart and discussed with pt RN. Pt is from home with family and is currently on room air. COVID19 negative. Pt has home oxygen with exertion and at HS. Pt has outpatient hemodialysis at [facility], [phone]; fax [phone], Sunday, , and Sunday. PT/OT recommended jail unit. SS met with pt and discussed discharge planning and jail unit. Pt agreeable to jail unit but only at [facility], ; fax [phone]. Pt reported that if [facility] does not accept he will discharge to home with home healthcare. Referral sent as requested. SS will continue to follow for discharge planning.
[2022-03-09 19:03] VITALS: BP 163/69
[2022-03-09] MEDS: traZODone 50 MG TABLET. PO SCH (20:56)
[2022-03-09] MEDS: ATORVASTATIN CALCIUM 40 MG TABLET. PO SCH (20:57)
[2022-03-09] MEDS ORDERED: INSULIN GLARGINE SYRINGE. SQ SCH (21:00)
[2022-03-09] MEDS ORDERED: EPOETIN ALFA 20,000 UNIT/ML VIAL for DIALYSIS PTS. SQ ONE (21:00)
[2022-03-09] MEDS: PATCH REMOVAL. MC SCH (21:00)
[2022-03-09] MEDS: TERAZOSIN 5 MG CAPSULE. PO SCH (21:22)
--- NOTE | 2022-03-09 21:37 | CONS ---
DATE OF CONSULTATION: 03/09/2022 ATTENDING PHYSICIAN: Allie Ash DO REASON FOR CONSULTATION: The patient is seen in pulmonary consultation at the request of Dr. Bowden for abnormal CT chest. HISTORY OF PRESENT ILLNESS: The patient is a 61-year-old that has been having some issues with falling. He presented, underwent a CT chest, abdomen and pelvis. He does have some rib fractures. In addition, there was evidence of lower lobe lingula, wedge-shaped defect, opacities. I was asked to see him in consultation. I personally reviewed the scan. There was evidence of basically atelectasis. No significant areas that appeared to be related to pulmonary contusion. There was also a 4-mm right upper lobe nodule. The patient has never smoked. He is short of breath with exertion due to lack of activity. He has been sitting around quite a bit. He has multiple comorbidities including end-stage renal disease, on hemodialysis. PAST MEDICAL HISTORY: End-stage renal disease, on hemodialysis, hyperlipidemia, hypertension, type 2 diabetes, morbid obesity, obstructive sleep apnea, using CPAP on a nightly basis along with oxygen use. PAST SURGICAL HISTORY: As above. In addition, he has had knee amputation on the left. REVIEW OF SYSTEMS: As indicated above, otherwise a 10-point system was reviewed and negative. CURRENT MEDICATIONS: List was reviewed. ALLERGIES: SULFA, NONSTEROIDALS, CYCLOBENZAPRINE, FENTANYL, MORPHINE, TAMSULOSIN. FAMILY HISTORY: Noncontributory. PHYSICAL EXAMINATION: GENERAL: Morbid obese individual in no respiratory distress, appeared to be older than stated age, currently on 2 liters. HEENT: Eyes: The sclerae were nonicteric. NECK: Jugular venous distention could not be assessed secondary to body habitus. CHEST: Full expansion. LUNGS: Diminished breath sounds in the bases. CARDIOVASCULAR: Regular rate and rhythm with S1, S2, no S3. ABDOMEN: Obese. EXTREMITIES: Evidence of previous AKA on the left, skin changes compatible with venous insufficiency on the right. NEUROLOGIC: The patient was awake, alert, following commands. A detailed neuro exam was not performed. LABORATORY DATA: Serology for SARS-CoV-2 and influenza was negative. Electrolytes were noted. BUN and creatinine were elevated. White count was normal, hemoglobin and hematocrit chronically low. CT chest as indicated above. IMPRESSION: 1. Abnormal CT revealing mostly atelectasis along with rib fractures. 2. Progressive dyspnea, multifactorial, related to mainly deconditioning and obesity. 3. Type 2 diabetes. 4. End-stage renal disease, on hemodialysis. 5. Obstructive sleep apnea. 6. Suspect secondary pulmonary hypertension. 7. Other comorbidities as listed above. PLAN: 1. Respiratory status appears to be compensated, the patient currently not requiring any oxygen. Recommend aggressive pulmonary hygiene with incentive spirometry. 2. Continue DVT prophylaxis. 3. PT, OT reevaluate. I do appreciate the privilege in sharing the patient's care. STEPHANIE DR: Taya TID: [id number]
[2022-03-09 22:02] VITALS: BP 146/63
[2022-03-10] MEDS ORDERED: MECLIZINE HCL 12.5 MG TABLET. PO PRN (00:15)
[2022-03-10] MEDS: COLESTIPOL HCL 1 GM TABLET PO SCH (01:10)
[2022-03-10] MEDS: HEPARIN for SUB-Q USE 5,000 UNIT/ML VIAL. SQ SCH ×2 (01:12→05:35)
[2022-03-10 03:41] VITALS: BP 172/81
[2022-03-10 04:25] LABS: HEMATOCRIT 24.4 % (39.0-53.0); HEMOGLOBIN 8.1 g/dL (13.0-17.5); RED BLOOD COUNT 2.71 x10^6/uL (4.30-5.70); RED CELL DISTRIBUTION WIDTH 16.1 % (11.5-14.5); WHITE BLOOD COUNT 7.3 x10^3/uL (4.0-11.0)
[2022-03-10] MEDS: LEVOTHYROXINE 75 MCG TABLET PO SCH (05:40)
[2022-03-10 07:00] VITALS: BP 178/79
[2022-03-10] MEDS ORDERED: diphenhydrAMINE HCL 25 MG CAPSULE PO PRN ×2 (07:00→07:15)
[2022-03-10] MEDS: INSULIN LISPRO 300 UNITS/3 ML VIAL. SQ SCH ×2 (07:30→08:55)
[2022-03-10] MEDS: BUDESONIDE 0.5 MG/2 ML NEBU. NEB SCH (08:38)
[2022-03-10] MEDS: ALBUTEROL SULFATE 2.5 MG/3 ML NEBU. NEB SCH ×2 (08:38→12:00)
[2022-03-10] MEDS: FOLIC/VIT B COMP W-C (RENAL) TABLET. PO SCH (08:49)
[2022-03-10] MEDS: DULoxetine HCL 30 MG CAPSULE.DR PO SCH (08:49)
[2022-03-10] MEDS: SERTRALINE 50 MG TABLET. PO SCH (08:50)
[2022-03-10] MEDS: ARIPiprazole 5 MG TABLET PO SCH (08:50)
[2022-03-10] MEDS: CETIRIZINE HCL 10 MG TABLET. PO SCH (08:50)
[2022-03-10] MEDS: FINASTERIDE 5 MG TABLET. PO SCH (08:51)
[2022-03-10] MEDS: GABAPENTIN 100 MG CAPSULE. PO SCH (08:51)
[2022-03-10] MEDS: CALCIUM ACETATE 667 MG CAPSULE PO SCH (08:51)
[2022-03-10] MEDS: oxyCODONE IR 5 MG TABLET PO PRN (08:52)
[2022-03-10] MEDS: LIDOCAINE (700MG/PATCH) PATCH. TD SCH (09:00)
[2022-03-10] MEDS: CALCIUM CARBONATE 500 MG TABLET PO SCH (09:08)
[2022-03-10] MEDS: FLUTICASONE 50MCG/NASAL SPRAY 16GM BOTTLE. NS SCH (09:08)
--- NOTE | 2022-03-10 09:08 | PDOC ---
PULMONARY PROGRESS NOTES DATE: 03/10/22 TIME: 09:08 Subjective Patient not more short of air. Vitals Vital Signs Date Time Temp Pulse Resp B/P (MAP) Pulse Ox O2 Delivery O2 Flow Rate FiO2 03/10/22 08:52 93 Nasal Cannula 03/10/22 08:50 90 178/79 03/10/22 07:00 98.0 18 3.0 98.0 ROS: No Nausea, No Chest Pain, No Abdominal Pain, No Increase Cough Lungs: Clear Cardiovascular: S1, S2 Abdomen: Soft Neuro Exam: Alert Extremities: No Edema Skin: Warm Labs Laboratory Tests Test 03/08/22 09:27 03/08/22 11:41 03/08/22 16:42 03/08/22 20:08 Sodium Level 142 mmol/L (136-145) Potassium Level 5.2 mmol/L (3.5-5.1) Chloride Level 100 mmol/L (98-107) Carbon Dioxide Level 27 mmol/L (21-32) Anion Gap 15 (6-14) Blood Urea Nitrogen 57 mg/dL (8-26) Creatinine 6.6 mg/dL (0.7-1.3) Estimated GFR (Cockcroft-Gault) 8.6 Glucose Level 237 mg/dL (70-99) Calcium Level 7.0 mg/dL (8.5-10.1) Phosphorus Level 6.8 mg/dL (2.6-4.7) Albumin 2.8 g/dL (3.4-5.0) Glucose (Fingerstick) 178 mg/dL (70-99) 188 mg/dL (70-99) 278 mg/dL (70-99) Test 03/09/22 05:55 03/09/22 07:35 03/09/22 12:53 03/09/22 16:32 Sodium Level 141 mmol/L (136-145) Potassium Level 4.2 mmol/L (3.5-5.1) Chloride Level 100 mmol/L (98-107) Carbon Dioxide Level 24 mmol/L (21-32) Anion Gap 17 (6-14) Blood Urea Nitrogen 74 mg/dL (8-26) Creatinine 8.1 mg/dL (0.7-1.3) Estimated GFR (Cockcroft-Gault) 6.8 Glucose Level 173 mg/dL (70-99) Calcium Level 7.8 mg/dL (8.5-10.1) Glucose (Fingerstick) 156 mg/dL (70-99) 148 mg/dL (70-99) 241 mg/dL (70-99) Test 03/09/22 20:45 03/10/22 04:00 03/10/22 07:16 Glucose (Fingerstick) 226 mg/dL (70-99) 142 mg/dL (70-99) White Blood Count 7.3 x10^3/uL (4.0-11.0) Red Blood Count 2.71 x10^6/uL (4.30-5.70) Hemoglobin 8.1 g/dL (13.0-17.5) Hematocrit 24.4 % (39.0-53.0) Mean Corpuscular Volume 90 fL (79-100) Mean Corpuscular Hemoglobin 30 pg (25-35) Mean Corpuscular Hemoglobin Concent 33 g/dL (31-37) Red Cell Distribution Width 16.1 % (11.5-14.5) Platelet Count 190 x10^3/uL (140-400) Laboratory Tests Test 03/09/22 12:53 03/09/22 16:32 03/09/22 20:45 03/10/22 04:00 Glucose (Fingerstick) 148 mg/dL (70-99) 241 mg/dL (70-99) 226 mg/dL (70-99) White Blood Count 7.3 x10^3/uL (4.0-11.0) Red Blood Count 2.71 x10^6/uL (4.30-5.70) Hemoglobin 8.1 g/dL (13.0-17.5) Hematocrit 24.4 % (39.0-53.0) Mean Corpuscular Volume 90 fL (79-100) Mean Corpuscular Hemoglobin 30 pg (25-35) Mean Corpuscular Hemoglobin Concent 33 g/dL (31-37) Red Cell Distribution Width 16.1 % (11.5-14.5) Platelet Count 190 x10^3/uL (140-400) Test 03/10/22 07:16 Glucose (Fingerstick) 142 mg/dL (70-99) Medications Active Scripts Medications Dose Route/Sig Max Daily Dose Days Date Category Oxycodone-Acetaminophen 10-325 (Oxycodone Hcl/Acetaminophen) 1 Each Tablet 1 Tab PO PRN Q6HRS PRN 03/08/22 Reported Lutein 20 Mg Capsule 20 Mg PO DAILY10 03/08/22 Reported Klonopin (Clonazepam) 0.5 Mg Tablet 0.5 Mg PO TID 03/08/22 Reported Breo Ellipta 200-25 Mcg INH (Fluticasone/Vilanterol) 1 Each Blst.w.dev 1 Puff IH DAILY 03/08/22 Reported Levemir (Insulin Detemir) 100 Unit/1 Ml Vial 34 Unit SQ HS 03/08/22 Reported Calcium Carbonate 500 Mg Tablet 3 Tab PO QHS 30 03/07/22 Reported Calcium Carbonate 500 Mg Tablet 0.5 Tab PO BIDAFTMEAL 30 03/07/22 Reported Hydroxyzine Hcl 25 Mg Tablet 1 Tab PO BID 03/07/22 Reported Finasteride 5 Mg Tablet 5 Mg PO DAILY 03/07/22 Reported Testosterone Cypionate 200 Mg/1 Ml Vial 1 Ml IM Q2WKS 03/07/22 Reported Pregabalin 50 Mg Capsule 1 Cap PO QHS PRN 03/07/22 Reported Nephro-Anmol Tablet (Folic Acid/Vitamin B Comp W-C) 0.8 Mg Tablet 1 Tab PO DAILY 03/07/22 Reported Sildenafil Citrate 25 Mg Tablet 25 Mg PO PRN DAILY PRN 03/07/22 Reported Doxycycline Hyclate 100 Mg Capsule 1 Cap PO BID 03/07/22 Reported Calcium Acetate 667 Mg Tablet 2 Tab PO TID 30 03/07/22 Reported Rosuvastatin Calcium 20 Mg Tablet 20 Mg PO DAILY 03/07/22 Reported Gabapentin (Gabapentin) 400 Mg Capsule 400 Mg PO TID 03/07/22 Reported Lisinopril 20 Mg Tablet 20 Mg PO BID 03/07/22 Reported Duloxetine Hcl 30 Mg Capsule.dr 30 Mg PO DAILY 03/07/22 Reported Sertraline Hcl 100 Mg Tablet 100 Mg PO BID 03/07/22 Reported Omeprazole Magnesium 20 Mg Capsule.dr 40 Mg PO BID 03/07/22 Reported Vitamin D2 (Ergocalciferol (Vitamin D2)) 1,250 Mcg Capsule 5,000 Intlu PO WEEKLY 11/01/20 Reported Vitamin B Complex 1 Each Tablet 1 Each PO DAILY 11/01/20 Reported Colestipol Hcl 1 Gm Tablet 1 Gm PO QID 11/01/20 Reported Terazosin Hcl 10 Mg Capsule 1 Cap PO DAILY 11/01/20 Reported Baclofen 10 Mg Tablet 1 Tab PO TID 11/01/20 Reported Zofran (Ondansetron Hcl) 4 Mg Tablet 1 Tab PO PRN Q6-8HRS 11/01/20 Reported Klor-Con 10 (Potassium Chloride) 10 Meq Tablet.er 1 Tab PO DAILY 30 11/01/20 Reported Amlodipine Besylate 5 Mg Tablet 5 Mg PO DAILY 11/01/20 Reported Flonase Allergy Relief (Fluticasone Propionate) 9.9 Ml [place].susp 2 Sprays NS DAILY 11/01/20 Reported Imodium A-D (Loperamide Hcl) 1 Mg/7.5 Ml Liquid 2 Mg PO PRN Q4HRS PRN 11/01/20 Reported Zyrtec (Cetirizine Hcl) 10 Mg Tablet 10 Mg PO DAILY 10/18/18 Reported Synthroid (Levothyroxine Sodium) 75 Mcg Tablet 75 Mcg PO DAILYAC 10/18/18 Reported Trazodone Hcl 50 Mg Tablet 50 Mg PO HS 10/18/18 Reported Abilify (Aripiprazole) 5 Mg Tablet 5 Mg PO DAILY 10/18/18 Reported Levemir Flextouch (Insulin Detemir) 100 Unit/1 Ml Insuln.pen 34 Unit SQ PRN BID PRN MDD 10/18/18 Reported Dicyclomine Hcl 20 Mg Tablet 20 Mg PO QID 10/18/18 Reported Impression . IMPRESSION: 1. Abnormal CT revealing mostly atelectasis along with rib fractures. 2. Progressive dyspnea, multifactorial, related to mainly deconditioning and obesity. 3. Type 2 diabetes. 4. End-stage renal disease, on hemodialysis. 5. Obstructive sleep apnea. 6. Suspect secondary pulmonary hypertension. 7. Other comorbidities as listed above. CT chest abdomen pelvis IMPRESSION: 1. Acute and subacute fractures in the anterolateral and lateral left ribs as above. 2. Hepatomegaly. Splenomegaly. 3. Cholelithiasis without CT evidence for fecal cystitis. 4. Lower lobe and lingular wedge-shaped opacities likely scarring/atelectasis. 5. Nonobstructing calculi bilaterally. 6. 4 mm right upper lobe lung nodule. Per Fleischner Society guidelines for incidentally found solid nodules measuring less than 6 mm, no follow-up is necessary if patient is considered at low risk for lung cancer. If patient is considered to be at high risk, such as with history of smoking, then CT follow- up in about 12 months can be considered. 7. Deformity left hip/femoral neck, likely chronic, possibly from old fracture. Plan . P updated 03/10 No additional recommendations Discharge today okay by me 1. Respiratory status appears to be compensated, the patient currently not requiring any oxygen. Recommend aggressive pulmonary hygiene with incentive spirometry. 2. Continue DVT prophylaxis. 3. PT, OT reevaluate. I do appreciate the privilege in sharing the patient's care. ANN MARIE PARISI MD March 10, 2022 09:08
--- NOTE | 2022-03-10 10:06 | PDOC ---
DATE OF SERVICE DATE: 03/10/22 TIME: 10:04 SUBJECTIVE ROS States feeling better OBJECTIVE Vital Signs Vital Signs Date Time Temp Pulse Resp B/P (MAP) Pulse Ox O2 Delivery O2 Flow Rate FiO2 03/10/22 08:52 93 Nasal Cannula 03/10/22 08:50 90 178/79 03/10/22 07:00 98.0 18 3.0 98.0 I & 0 Intake and Output 03/10/22 07:00 Intake Total 970 ml Output Total 800 ml Balance 170 ml Intake Oral 970 ml Output Urine Total 800 ml PHYSICAL EXAM Physical Exam General NAD HEEN OM moist ,anicteric, Neck Supple Lungs CTA , Non labored CV s1s2v Abd Obese , NT, soft Ext Lt BKA Neuro Grossly normal Psych Cooperative No Jacobs Derm No Rash DIAGNOSIS/ASSESSMENT Assessment & Plan ESRD on HD @ [facility] No indication for dialysis today . Resume dialysis at OP unit tomorrow if dced today Access- AV access- Lt Arm and Tunneled HDC Renal Calculus - Nonobstructing calculi bilaterally. Anemia - Hgb stable, EMMY HyperKalemia- HypoCalcemia- Mildly low after correcting for Albumin, replace . On CACO3 at home as replacement . DM- Per PRIMARY COMMENT/RELEVANT DATA Meds Current Medications Medications (Trade) Dose Ordered Sig/Louisa Start Time Stop Time Status Last Admin Dose Admin Acetaminophen (Tylenol) 650 mg PRN Q6HRS PRN 03/08/22 09:00 Cancel Albuterol Sulfate (Ventolin Neb Soln) 2.5 mg RTQID 03/08/22 09:30 03/10/22 08:38 2.5 MG Amlodipine Besylate (Norvasc) 5 mg DAILY 03/08/22 09:00 03/10/22 08:50 5 MG Aripiprazole (Abilify) 5 mg DAILY 03/08/22 09:00 03/10/22 08:50 5 MG Atorvastatin Calcium (Lipitor) 80 mg QHS 03/08/22 21:00 03/09/22 20:57 80 MG Baclofen (Lioresal) 10 mg PRN TID PRN 03/08/22 09:00 03/09/22 21:39 10 MG Budesonide (Pulmicort) 0.5 mg RTBID 03/08/22 09:30 03/10/22 08:38 0.5 MG Calcium Acetate (Phoslo) 1,334 mg TIDWMEALS 03/08/22 12:00 03/10/22 08:51 1,334 MG Calcium Carbonate/ Glycine (Oscal) 1,500 mg QHS 03/08/22 21:00 03/09/22 21:24 1,500 MG Calcium Chloride 1000 mg/Sodium Chloride 110 ml @ 110 mls/hr 1X ONCE 03/08/22 18:00 03/08/22 18:59 DC 03/08/22 18:15 110 MLS/HR Cetirizine HCl (ZyrTEC) 10 mg DAILY 03/08/22 09:00 03/10/22 08:50 10 MG Colestipol HCl (Colestid) 1 gm QID@1000,1300,1700,2200 03/08/22 09:00 03/10/22 01:10 1 GM Dextrose (Dextrose 50%-Water Syringe) 12.5 gm PRN Q15MIN PRN 03/07/22 17:30 Diphenhydramine HCl (Benadryl) 50 mg PRN Q4HRS PRN 03/10/22 07:15 Duloxetine HCl (Cymbalta) 30 mg DAILY 03/08/22 09:00 03/10/22 08:49 30 MG Epoetin Laurent (PROCRIT for DIALYSIS PTS) 20,000 unit 1X ONCE 03/09/22 21:00 03/09/22 21:01 DC 03/09/22 21:26 20,000 UNIT Ergocalciferol (Vitamin D2) 50,000 unit WEEKLY 03/08/22 09:00 03/08/22 09:23 50,000 UNIT Finasteride (Proscar) 5 mg DAILY 03/08/22 09:00 03/10/22 08:51 5 MG Fluticasone Propionate (Flonase) 2 spray DAILY 03/08/22 09:00 03/10/22 09:08 2 SPRAY Gabapentin (Neurontin) 100 mg TID 03/08/22 09:00 03/10/22 08:51 100 MG Guaifenesin (Robitussin Dm) 10 ml PRN Q6HRS PRN 03/08/22 09:00 Heparin Sodium (Porcine) (Heparin Sodium) 5,000 unit Q8HRS 03/08/22 14:00 03/10/22 05:35 5,000 UNIT Hydralazine HCl (Apresoline Inj) 10 mg PRN Q4HRS PRN 03/08/22 09:00 03/10/22 05:40 10 MG Hydroxyzine HCl (Atarax) 25 mg PRN BID PRN 03/08/22 09:00 03/09/22 23:36 25 MG Info (PHARMACY MONITORING -- do not chart) 1 each PRN DAILY PRN 03/09/22 07:30 Insulin Glargine (Lantus Syringe) 34 unit QHS 03/09/22 21:00 03/09/22 21:33 34 UNIT Insulin Human Lispro (HumaLOG) 5 units TIDAC 03/09/22 07:30 03/10/22 08:55 5 UNITS Levothyroxine Sodium (Synthroid) 75 mcg DAILYAC 03/09/22 07:30 UNV Lidocaine (Lidoderm) 1 patch DAILY 03/08/22 10:15 03/09/22 08:10 1 PATCH Meclizine HCl (Antivert) 12.5 mg PRN Q6HRS PRN 03/10/22 00:15 03/10/22 00:24 12.5 MG Miscellaneous (Lidoderm Patch Removal) 1 ea QHS 03/08/22 21:00 03/09/22 21:00 1 EA Non-Formulary Medication (Fluticasone/ Vilanterol (Breo Ellipta 200-25 Mcg INH)) 1 puff DAILY 03/08/22 09:00 UNV Olanzapine (ZyPREXA ZYDIS) 5 mg PRN BID PRN 03/08/22 09:00 Ondansetron HCl (Zofran Odt) 4 mg PRN Q4HRS PRN 03/09/22 13:45 03/09/22 13:44 4 MG Ondansetron HCl (Zofran) 4 mg PRN Q8HRS PRN 03/07/22 17:30 03/08/22 17:29 DC 03/07/22 19:59 4 MG Oxycodone HCl (Roxicodone) 10 mg PRN Q6HRS PRN 03/08/22 09:45 03/10/22 08:52 10 MG Sertraline HCl (Zoloft) 100 mg BID 03/08/22 09:00 03/10/22 08:50 100 MG Sodium Chloride 1,000 ml @ 400 mls/hr Q2H30M PRN 03/09/22 07:30 03/09/22 19:29 DC Terazosin HCl (Hytrin) 10 mg QHS 03/08/22 21:00 03/09/22 21:22 10 MG Thiamine HCl (Thiamine Im) 100 mg 1X ONCE 03/08/22 05:00 03/08/22 05:02 DC 03/08/22 05:05 100 MG Tramadol HCl (Ultram) 50 mg PRN Q6HRS PRN 03/08/22 09:00 Trazodone HCl (Desyrel) 50 mg HS 03/08/22 21:00 03/09/22 20:56 50 MG Vitamin B Complex (Bairon B) 1 tab DAILY 03/08/22 09:00 Cancel Vitamin B Complex/ Vitamin C (Caryn-Anmol) 1 tab DAILY 03/08/22 09:00 03/10/22 08:49 1 TAB Lab Laboratory Tests Test 03/09/22 12:53 03/09/22 16:32 03/09/22 20:45 03/10/22 04:00 Glucose (Fingerstick) 148 mg/dL (70-99) 241 mg/dL (70-99) 226 mg/dL (70-99) White Blood Count 7.3 x10^3/uL (4.0-11.0) Red Blood Count 2.71 x10^6/uL (4.30-5.70) Hemoglobin 8.1 g/dL (13.0-17.5) Hematocrit 24.4 % (39.0-53.0) Mean Corpuscular Volume 90 fL (79-100) Mean Corpuscular Hemoglobin 30 pg (25-35) Mean Corpuscular Hemoglobin Concent 33 g/dL (31-37) Red Cell Distribution Width 16.1 % (11.5-14.5) Platelet Count 190 x10^3/uL (140-400) Test 03/10/22 07:16 Glucose (Fingerstick) 142 mg/dL (70-99) Results All relevant outside records, renal labs, imaging studies, telemetry/EKG's were reviewed. Justicifation of Admission Dx: Justifications for Admission: Justification of Admission Dx: N/A BATSHEVA CLEMENTS MD March 10, 2022 10:05
--- NOTE | 2022-03-10 10:19 | PDOC ---
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 We will have pulmonology to see FEN - Renal dialysis PPX - heparin FULL CODE Dispo - inpatient History of Present Illness History of Present Illness Mr Phillips is a 61-year-old male w/ PMHx DM, HTN, hyperlipidemia, ESRD on HD, chronic neck and back pain, s/p L AKA presented to ED from dialysis center due to altered mental status. He did not recall being his dialysis center. Patient reports achy headache and left lower chest/ upper quadrant abdominal pain. Patient reports headache and abdominal pain began on 03/03/2022 following a fall in his bathroom that resulted in head trauma. Patient reports he has been falling more often in the past year. Patient also reports currently working with neurologist regarding tremors/jerks. He also notes he had been taking gabapentin and Lyrica also pain medications and is worried about his spinal stimulator battery that diet has not been replaced. CT chest abdomen pelvis revealed left-sided rib fractures. 03/08: Found with left-sided rib fractures. A little more alert. Having significant left-sided pain at his site of rib fractures requiring IV pain medication and application of Lidoderm patch. May have some pulmonary contusion 03/09: Seen on dialysis still in significant pain notes a ringing in his ears and some abdominal discomfort and worsening left-sided chest pain. Lidoderm patch did help temporarily. He lost IV access and has some significant swelling in his right arm pending venous Doppler and some hematoma in his left upper extremity fistula site is dialyzing on his HD catheter today. 03/10: His pain is better controlled today had some intense pruritus overnight improved with Benadryl. Does have a little bit of pain at his infiltrated IV site in his right upper extremity warm compress improved. He is on doxycycline already prophylaxis at home discussed therapy recommendations for skilled he notes that because his left AKA prosthesis has not been feeling well ever since his left hip fracture he actually has power chair and mostly gets around by wheelchair at home. Vitals/I&O Vitals/I&O: Vital Signs Date Time Temp Pulse Resp B/P (MAP) Pulse Ox O2 Delivery O2 Flow Rate FiO2 03/10/22 08:52 93 Nasal Cannula 03/10/22 08:50 90 178/79 03/10/22 07:00 98.0 18 3.0 98.0 I & O 03/09/22 03/09/22 03/10/22 15:00 23:00 07:00 Intake Total 220 ml 450 ml 300 ml Output Total 800 ml Balance 220 ml -350 ml 300 ml Physical Exam General: Alert, Cooperative Heart: Regular rate, Normal S1, Normal S2 Lungs: Clear Abdomen: Normal bowel sounds, Soft Extremities: No clubbing, No cyanosis Skin: No rashes, No breakdown Labs Labs: Laboratory Tests Test 03/09/22 12:53 03/09/22 16:32 03/09/22 20:45 03/10/22 04:00 Glucose (Fingerstick) 148 mg/dL (70-99) 241 mg/dL (70-99) 226 mg/dL (70-99) White Blood Count 7.3 x10^3/uL (4.0-11.0) Red Blood Count 2.71 x10^6/uL (4.30-5.70) Hemoglobin 8.1 g/dL (13.0-17.5) Hematocrit 24.4 % (39.0-53.0) Mean Corpuscular Volume 90 fL (79-100) Mean Corpuscular Hemoglobin 30 pg (25-35) Mean Corpuscular Hemoglobin Concent 33 g/dL (31-37) Red Cell Distribution Width 16.1 % (11.5-14.5) Platelet Count 190 x10^3/uL (140-400) Test 03/10/22 07:16 Glucose (Fingerstick) 142 mg/dL (70-99) Assessment and Plan Assessmemt and Plan Problems Medical Problems: (1) Altered mental status Status: Acute (2) ESRD (end stage renal disease) on dialysis Status: Acute Comment Review of Relevant I have reviewed the following items issa (where applicable) has been applied. Medications: Current Medications Medications (Trade) Dose Ordered Sig/Louisa Route PRN Reason Start Time Stop Time Status Last Admin Dose Admin Insulin Glargine (Lantus Syringe) 34 unit QHS SQ 03/09/22 21:00 03/09/22 21:33 Epoetin Laurent (PROCRIT for DIALYSIS PTS) 20,000 unit 1X ONCE SQ 03/09/22 21:00 03/09/22 21:01 DC 03/09/22 21:26 Ondansetron HCl (Zofran Odt) 4 mg PRN Q4HRS PRN PO NAUSEA 03/09/22 13:45 03/09/22 13:44 Meclizine HCl (Antivert) 12.5 mg PRN Q6HRS PRN PO DIZZINESS 03/10/22 00:15 03/10/22 00:24 Diphenhydramine HCl (Benadryl) 25 mg PRN Q4HRS PRN PO ITCHING 03/10/22 07:00 03/10/22 08:50 Justifications for Admission Other Justification MCKAYLA LI MD March 10, 2022 10:19
--- NOTE | 2022-03-10 10:24 | PDOC3 ---
Discharge Summary Visit Information Date of Admission: March 07, 2022 Date of Discharge: March 10, 2022 Admitting Diagnosis: Fall, rib fractures Final Diagnosis Problems Medical Problems: (1) Altered mental status Status: Acute (2) ESRD (end stage renal disease) on dialysis Status: Acute Brief Hospital Course Allergies Allergies Coded Allergies Type Severity Reaction Last Updated Verified NSAIDS (Non-Steroidal Anti-Inflamma Allergy Intermediate 10/18/18 Yes cyclobenzaprine Allergy Intermediate 10/18/18 Yes fentanyl Allergy Intermediate 10/18/18 Yes morphine Allergy Intermediate headache 10/18/18 Yes tamsulosin Allergy Intermediate 10/18/18 Yes Sulfa (Sulfonamide Antibiotics) Adverse Reaction Intermediate PALIPTATIONS 10/18/18 Yes Vital Signs Vital Signs Date Time Temp Pulse Resp B/P (MAP) Pulse Ox O2 Delivery O2 Flow Rate FiO2 03/10/22 08:52 93 Nasal Cannula 03/10/22 08:50 90 178/79 03/10/22 07:00 98.0 18 3.0 98.0 Lab Results Laboratory Tests Test 03/08/22 11:41 03/08/22 16:42 03/08/22 20:08 03/09/22 05:55 Glucose (Fingerstick) 178 mg/dL (70-99) 188 mg/dL (70-99) 278 mg/dL (70-99) Sodium Level 141 mmol/L (136-145) Potassium Level 4.2 mmol/L (3.5-5.1) Chloride Level 100 mmol/L (98-107) Carbon Dioxide Level 24 mmol/L (21-32) Anion Gap 17 (6-14) Blood Urea Nitrogen 74 mg/dL (8-26) Creatinine 8.1 mg/dL (0.7-1.3) Estimated GFR (Cockcroft-Gault) 6.8 Glucose Level 173 mg/dL (70-99) Calcium Level 7.8 mg/dL (8.5-10.1) Test 03/09/22 07:35 03/09/22 12:53 03/09/22 16:32 03/09/22 20:45 Glucose (Fingerstick) 156 mg/dL (70-99) 148 mg/dL (70-99) 241 mg/dL (70-99) 226 mg/dL (70-99) Test 03/10/22 04:00 03/10/22 07:16 White Blood Count 7.3 x10^3/uL (4.0-11.0) Red Blood Count 2.71 x10^6/uL (4.30-5.70) Hemoglobin 8.1 g/dL (13.0-17.5) Hematocrit 24.4 % (39.0-53.0) Mean Corpuscular Volume 90 fL (79-100) Mean Corpuscular Hemoglobin 30 pg (25-35) Mean Corpuscular Hemoglobin Concent 33 g/dL (31-37) Red Cell Distribution Width 16.1 % (11.5-14.5) Platelet Count 190 x10^3/uL (140-400) Glucose (Fingerstick) 142 mg/dL (70-99) Laboratory Tests Test 03/09/22 12:53 03/09/22 16:32 03/09/22 20:45 03/10/22 04:00 Glucose (Fingerstick) 148 mg/dL (70-99) 241 mg/dL (70-99) 226 mg/dL (70-99) White Blood Count 7.3 x10^3/uL (4.0-11.0) Red Blood Count 2.71 x10^6/uL (4.30-5.70) Hemoglobin 8.1 g/dL (13.0-17.5) Hematocrit 24.4 % (39.0-53.0) Mean Corpuscular Volume 90 fL (79-100) Mean Corpuscular Hemoglobin 30 pg (25-35) Mean Corpuscular Hemoglobin Concent 33 g/dL (31-37) Red Cell Distribution Width 16.1 % (11.5-14.5) Platelet Count 190 x10^3/uL (140-400) Test 03/10/22 07:16 Glucose (Fingerstick) 142 mg/dL (70-99) Brief Hospital Course Mr Phillips is a 61-year-old male w/ PMHx DM, HTN, hyperlipidemia, ESRD on HD, chronic neck and back pain, s/p L AKA presented to ED from dialysis center due to altered mental status. He did not recall being his dialysis center. Patient reports achy headache and left lower chest/ upper quadrant abdominal pain. Patient reports headache and abdominal pain began on 03/03/2022 following a fall in his bathroom that resulted in head trauma. Patient reports he has been falling more often in the past year. Patient also reports currently working with neurologist regarding tremors/jerks. He also notes he had been taking gabapentin and Lyrica also pain medications and is worried about his spinal stimulator battery that diet has not been replaced. CT chest abdomen pelvis revealed left-sided rib fractures. 03/08: Found with left-sided rib fractures. A little more alert. Having significant left-sided pain at his site of rib fractures requiring IV pain medication and application of Lidoderm patch. May have some pulmonary contusion 03/09: Seen on dialysis still in significant pain notes a ringing in his ears and some abdominal discomfort and worsening left-sided chest pain. Lidoderm patch did help temporarily. He lost IV access and has some significant swelling in his right arm pending venous Doppler and some hematoma in his left upper extremity fistula site is dialyzing on his HD catheter today. 03/10: His pain is better controlled today had some intense pruritus overnight improved with Benadryl. Does have a little bit of pain at his infiltrated IV site in his right upper extremity warm compress improved. He is on doxycycline already prophylaxis at home discussed therapy recommendations for skilled he notes that because his left AKA prosthesis has not been feeling well ever since his left hip fracture he actually has power chair and mostly gets around by wheelchair at home. Consults: Nephrology and pulmonology Rib fractures left-sided -have pulmonary contusion. 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, COPD, Hypertension Hyperlipidemia GERD Essential tremor Greater than 30 minutes spent on discharge home with self-care Discharge Information Condition at Discharge: Improved Follow Up: Weeks (1) Disposition/Orders: D/C to Home Scheduled Amlodipine Besylate (Amlodipine Besylate) 5 Mg Tablet, 5 MG PO DAILY for heart, (Reported) Entered as Reported by: PETE LY on 11/01/20 1016 Last Action: Continued on 03/08/22 0853 by MCKAYLA LI MD Aripiprazole (Abilify) 5 Mg Tablet, 5 MG PO DAILY for mood, (Reported) Entered as Reported by: KAN RIVERA on 10/18/18 0931 Last Action: Continued on 03/08/22852 by MCKAYLA LI MD Baclofen (Baclofen) 10 Mg Tablet, 1 TAB PO TID for muscle spasms, #90 Ref 2 (Reported) Entered as Reported by: PETE LY on 11/01/20 1016 Last Action: Continued on 03/08/22852 by MCKAYLA LI MD Calcium Acetate (Calcium Acetate) 667 Mg Tablet, 2 TAB PO TID for for 30 Days, #180 Ref 0 (Reported) Entered as Reported by: RATNA LUNA RN on 03/07/222153 Last Action: Converted on 03/08/22852 by MCKAYLA LI MD Calcium Carbonate (Calcium Carbonate) 500 Mg Tablet, 0.5 TAB PO BIDAFTMEAL for for 30 Days, #30 Ref 0 (Reported) Entered as Reported by: RATNA LUNA RN on 03/07/222199 Last Action: Continued on 03/08/22852 by MCKAYLA LI MD Calcium Carbonate (Calcium Carbonate) 500 Mg Tablet, 3 TAB PO QHS for for 30 Days, #90 Ref 0 (Reported) Entered as Reported by: RATNA LUNA RN on 03/07/222199 Last Action: Continued on 03/08/22852 by MCKAYLA LI MD Cetirizine Hcl (Zyrtec) 10 Mg Tablet, 10 MG PO DAILY for allergy, (Reported) Entered as Reported by: KAN RIVERA on 10/18/18 0931 Last Action: Continued on 03/08/22852 by MCKAYLA LI MD Clonazepam (Klonopin) 0.5 Mg Tablet, 0.5 MG PO TID for anxiety, (Reported) Entered as Reported by: Angela Sanchez on 03/08/22729 Last Action: New Order on 03/08/22729 by Angela Sanchez Colestipol Hcl (Colestipol Hcl) 1 Gm Tablet, 1 GM PO QID for high cholesterol, (Reported) Entered as Reported by: PETE LY on 11/01/20 1016 Last Action: Continued on 03/08/22852 by MCKAYLA LI MD Dicyclomine Hcl (Dicyclomine Hcl) 20 Mg Tablet, 20 MG PO QID for abd pain, (Re ported) Entered as Reported by: KAN RIVERA on 10/18/18 0931 Last Action: Reviewed on 03/08/22637 by Angela Sanchez Doxycycline Hyclate (Doxycycline Hyclate) 100 Mg Capsule, 1 CAP PO BID for , (Reported) Entered as Reported by: RATNA LUNA RN on 03/07/222153 Last Action: Reviewed on 03/08/22638 by Angela Sanchez Duloxetine Hcl (Duloxetine Hcl) 30 Mg Capsule.dr, 30 MG PO DAILY for , (Reported) Entered as Reported by: RATNA LUNA RN on 03/07/222153 Last Action: Continued on 03/08/22852 by MCKAYLA LI MD Ergocalciferol (Vitamin D2) (Vitamin D2) 1,250 Mcg Capsule, 5,000 INTLU PO WEEKLY for supplement, (Reported) Entered as Reported by: PETE LY on 11/01/20 1016 Last Action: Continued on 03/08/22852 by MCKAYLA LI MD Finasteride (Finasteride) 5 Mg Tablet, 5 MG PO DAILY for , (Reported) Entered as Reported by: RATNA LUNA RN on 03/07/222199 Last Action: Continued on 03/08/22852 by MCKAYLA LI MD Fluticasone Propionate (Flonase Allergy Relief) 9.9 Ml [place].susp, 2 SPRAYS NS DAILY for allergies, (Reported) Entered as Reported by: SREE WINTERS on 11/01/2048 Last Action: Converted on 03/08/22852 by MCKAYLA LI MD Fluticasone/Vilanterol (Breo Ellipta 200-25 Mcg INH) 1 Each Blst.w.dev, 1 PUFF IH DAILY for lungs, (Reported) Entered as Reported by: Angela Sanchez on 03/08/2220 Last Action: Converted on 03/08/22852 by MCKAYLA LI MD Folic Acid/Vitamin B Comp W-C (Nephro-Anmol Tablet) 0.8 Mg Tablet, 1 TAB PO DAILY for , (Reported) Entered as Reported by: RATNA LUNA RN on 03/07/222153 Last Action: Continued on 03/08/22852 by MCKAYLA LI MD Gabapentin (Gabapentin ) 400 Mg Capsule, 400 MG PO TID for NEUROGENIC PAIN, (Reported) Entered as Reported by: RATNA LUNA RN on 03/07/222153 Last Action: Continued on 03/08/22852 by MCKAYLA LI MD Hydroxyzine Hcl (Hydroxyzine Hcl) 25 Mg Tablet, 1 TAB PO BID for , #60 (Reported) Entered as Reported by: RATNA LUNA RN on 03/07/222199 Last Action: Continued on 03/08/22852 by MCKAYLA LI MD Insulin Detemir (Levemir) 100 Unit/1 Ml Vial, 34 UNIT SQ HS for dm, (Reported) Entered as Reported by: Angela Sanchez on 03/08/22636 Last Action: Converted on 03/08/22852 by MCKAYLA LI MD Levothyroxine Sodium (Synthroid) 75 Mcg Tablet, 75 MCG PO DAILYAC for THYROID SUPPLEMENT, #30 Ref 0 (Reported) Entered as Reported by: KAN RIVERA on 10/18/1831 Last Action: Continued on 03/08/22852 by MCKAYLA LI MD Lisinopril (Lisinopril) 20 Mg Tablet, 20 MG PO BID for FOR HYPERTENSION, #30 Ref 0 (Reported) Entered as Reported by: RATNA LUNA RN on 03/07/222153 Last Action: Reviewed on 03/08/22641 by Angela Sanchez Lutein (Lutein) 20 Mg Capsule, 20 MG PO DAILY10 for supplement, (Reported) Entered as Reported by: Angela Sanchez on 03/08/22737 Last Action: Reviewed on 03/08/22739 by Angela Sanchez Omeprazole Magnesium (Omeprazole Magnesium) 20 Mg Capsule.dr, 40 MG PO BID for , (Reported) Entered as Reported by: RATNA LUNA RN on 03/07/222153 Last Action: Reviewed on 03/08/22719 by Angela Sanchez Ondansetron Hcl (Zofran) 4 Mg Tablet, 1 TAB PO PRN Q6-8HRS for nausea, #5 (Reported) Entered as Reported by: PETE LY on 1/4/21 1016 Last Action: Reviewed on 03/08/22725 by Angela Sanchez Potassium Chloride (Klor-Con 10) 10 Meq Tablet.er, 1 TAB PO DAILY for supplement for 30 Days, #30 Ref 0 (Reported) Entered as Reported by: PETE LY on 11/01/20 1016 Last Action: Reviewed on 03/08/22733 by Angela Sanchez Rosuvastatin Calcium (Rosuvastatin Calcium) 20 Mg Tablet, 20 MG PO DAILY for , (Reported) Entered as Reported by: RATNA LUNA RN on 03/07/222153 Last Action: Converted on 03/08/22852 by MCKAYLA LI MD Sertraline Hcl (Sertraline Hcl) 100 Mg Tablet, 100 MG PO BID for ANTI- DEPRESSANT, Ref 0 (Reported) Entered as Reported by: RATNA LUNA RN on 03/07/222153 Last Action: Converted on 03/08/22852 by MCKAYLA LI MD Terazosin Hcl (Terazosin Hcl) 10 Mg Capsule, 1 CAP PO DAILY for urinary retention, #90 Ref 1 (Reported) Entered as Reported by: PETE LY on 11/01/201015 Last Action: Converted on 03/08/22852 by MCKAYLA LI MD Testosterone Cypionate (Testosterone Cypionate) 200 Mg/1 Ml Vial, 1 ML IM Q2WKS for , (Reported) Entered as Reported by: RATNA LUNA RN on 03/07/222153 Last Action: Reviewed on 03/08/22725 by Angela Sanchez Trazodone Hcl (Trazodone Hcl) 50 Mg Tablet, 50 MG PO HS for sleep, (Reported) Entered as Reported by: KAN RIVERA on 10/18/18 0931 Last Action: Continued on 03/08/22852 by MCKAYLA LI MD Vitamin B Complex (Vitamin B Complex) 1 Each Tablet, 1 EACH PO DAILY for supplement, (Reported) Entered as Reported by: PETE LY on 11/01/20 1016 Last Action: Continued on 03/08/22852 by MCKAYLA LI MD Scheduled PRN Insulin Detemir (Levemir Flextouch) 100 Unit/1 Ml Insuln.pen, 34 UNIT SQ PRN BID PRN for diabetic MDD , (Reported) Entered as Reported by: KAN RIVERA on 10/18/18930 Last Action: Reviewed on 03/08/22719 by Angela Sanchez Loperamide Hcl (Imodium A-D) 1 Mg/7.5 Ml Liquid, 2 MG PO PRN Q4HRS PRN for , (Reported) Entered as Reported by: SREE WINTERS on 11/01/20 0848 Last Action: Reviewed on 03/08/22739 by Angela Sanchez Oxycodone Hcl/Acetaminophen (Oxycodone-Acetaminophen 10-325) 1 Each Tablet, 1 TAB PO PRN Q6HRS PRN for PAIN, (Reported) Entered as Reported by: KIMMY CURRY on 03/08/22929 Last Action: New Order on 03/08/22929 by KIMMY CURRY Pregabalin (Pregabalin) 50 Mg Capsule, 1 CAP PO QHS PRN for , (Reported) Entered as Reported by: RATNA LUNA RN on 03/07/222153 Last Action: Reviewed on 03/08/22733 by Angela Sanchez Sildenafil Citrate (Sildenafil Citrate) 25 Mg Tablet, 25 MG PO PRN DAILY PRN for , (Reported) Entered as Reported by: RATNA LUNA RN on 03/07/222153 Last Action: Reviewed on 03/08/22723 by Angela Sanchez Discontinued Medications Duloxetine Hcl (Cymbalta) 60 Mg Capsule.dr, 60 MG PO DAILY for antidepressant, (Reported) Discontinued Reason: Prescription changed Entered as Reported by: KAN RIVERA on 10/18/18930 Gabapentin (Neurontin) 800 Mg Tablet, 800 MG PO TID for NEUROGENIC PAIN, (Reported) Discontinued Reason: Prescription changed Entered as Reported by: KAN RIVERA on 10/18/18930 Lisinopril (Lisinopril) 40 Mg Tablet, 40 MG PO DAILY for FOR HYPERTENSION, #30 Ref 0 (Reported) Discontinued Reason: Prescription changed Entered as Reported by: KAN RIVERA on 10/18/18930 Rosuvastatin Calcium (Crestor) 40 Mg Tablet, 20 MG PO HS for FOR CHOLESTEROL, #30 Ref 0 (Reported) Discontinued Reason: Prescription changed Entered as Reported by: PETE LY on 11/01/20 1016 Sertraline Hcl (Zoloft) 25 Mg Tablet, 25 MG PO DAILY for ANTI-DEPRESSANT, Ref 0 (Reported) Discontinued Reason: Prescription changed Entered as Reported by: KNA RIVERA on 10/18/18 0931 Justicifation of Admission Dx: Justifications for Admission: Justification of Admission Dx: N/A MCKAYLA LI MD March 10, 2022 10:24
[2022-03-10 10:43] VITALS: BP 164/75
--- NOTE | 2022-03-10 11:00 | NUR ---
SS following up with discharge planning. SS reviewed pt chart and discussed with pt RN. Pt is currently on room air. COVID19 negative. Pt has home oxygen with exertion and at HS. Pt has outpatient hemodialysis at [facility], [phone]; fax [phone], Sunday, , and Sunday. PT/OT recommended senior living unit. Pt reporting to physician and SS today that he no longer wants senior living unit. Pt requesting to discharge to home. Pt declining home healthcare. Discharge order on the chart for home with self care.
--- NOTE | 2022-03-10 11:08 | NUR ---
Discharge instructions reviewed with patient. Patient denies questions or concerns at this time. Saline lock removed from RFA with cannula intact.
--- NOTE | 2022-03-10 12:35 | NUR ---
Patient escorted to main entrance via wheelchair. Assisted into private vehicle driven by son. all belongings taken at discharge including items from safe.
== END 2022-03-10 12:19 | disposition home or self-care (01) | DRG 183 ==
LOC: ER 14:44 → ED HOLD 19:36 → 6 SOUTH 19:57
PROVIDERS: ADMIT Internal Medicine; ATTEND Internal Medicine
PROC: 5A09357 Assistance with Respiratory Ventilation, Less than 24 Consecutive Hours, Continuous Positive Airway Pressure (ICD-10-PCS; 2022-03-07)
PROC: 5A09357 Assistance with Respiratory Ventilation, Less than 24 Consecutive Hours, Continuous Positive Airway Pressure (ICD-10-PCS; 2022-03-08)
PROC: 5A09357 Assistance with Respiratory Ventilation, Less than 24 Consecutive Hours, Continuous Positive Airway Pressure (ICD-10-PCS; 2022-03-09)
PROC: 5A1D70Z Performance of Urinary Filtration, Intermittent, Less than 6 Hours Per Day (ICD-10-PCS; 2022-03-09)
PROC: 5A09357 Assistance with Respiratory Ventilation, Less than 24 Consecutive Hours, Continuous Positive Airway Pressure (ICD-10-PCS; principal; 2022-03-10)
DX: S22.42XA Multiple fractures of ribs, left side, initial encounter for closed fracture (principal); G93.41 Metabolic encephalopathy; N18.6 End stage renal disease; N17.9 Acute kidney failure, unspecified; I50.32 Chronic diastolic (congestive) heart failure; J98.11 Atelectasis; K50.90 Crohn's disease, unspecified, without complications; K90.9 Intestinal malabsorption, unspecified; S27.329A Contusion of lung, unspecified, initial encounter; E51.2 Wernicke's encephalopathy; E03.9 Hypothyroidism, unspecified; E11.22 Type 2 diabetes mellitus with diabetic chronic kidney disease; E27.8 Other specified disorders of adrenal gland; E66.01 Morbid (severe) obesity due to excess calories; E78.00 Pure hypercholesterolemia, unspecified; E78.5 Hyperlipidemia, unspecified; G25.0 Essential tremor; G47.33 Obstructive sleep apnea (adult) (pediatric); G89.29 Other chronic pain; J44.9 Chronic obstructive pulmonary disease, unspecified; K21.9 Gastro-esophageal reflux disease without esophagitis; K80.20 Calculus of gallbladder without cholecystitis without obstruction; L29.9 Pruritus, unspecified; M17.10 Unilateral primary osteoarthritis, unspecified knee; N40.0 Benign prostatic hyperplasia without lower urinary tract symptoms; Z82.49 Family history of ischemic heart disease and other diseases of the circulatory system; Z82.5 Family history of asthma and other chronic lower respiratory diseases; Z83.3 Family history of diabetes mellitus; Z85.848 Personal history of malignant neoplasm of other parts of nervous tissue; Z87.11 Personal history of peptic ulcer disease; Z87.442 Personal history of urinary calculi; Z89.612 Acquired absence of left leg above knee; Z96.652 Presence of left artificial knee joint; Z98.1 Arthrodesis status; Z99.2 Dependence on renal dialysis; F32.A Depression, unspecified; F41.9 Anxiety disorder, unspecified; Z63.4 Disappearance and death of family member; Z88.2 Allergy status to sulfonamides; Z88.8 Allergy status to other drugs, medicaments and biological substances; Z91.048 Other nonmedicinal substance allergy status; Z20.822 Contact with and (suspected) exposure to COVID-19; W18.39XA Other fall on same level, initial encounter; Y93.89 Activity, other specified; Y92.89 Other specified places as the place of occurrence of the external cause; Y99.8 Other external cause status
CPT/HCPCS: 36415; 70450; 71250; 72125; 74176; 80048; 80053; 80069; 82140; 82553; 82962; 83605; 83735; 84484; 85025; 85027; 85610; 85730; 87428; 93005; 93971; 94640; 94760; 96374; G0238; J0360; J1644; J1815; J2405; J3411; J3490; U0003; 97110-GP; 97535-GO; 99285-25; G0378; J7613; J7626; J8597; Q0163; Q4081